=== PATIENT | male | born 1940 | race Caucasian/White ===

== ENCOUNTER → 2017-04-27 | Outpatient (CLI) | payer MEDICARE, OTHER ==
--- NOTE | 2017-04-27 12:42 | US ---
EXAMINATION TYPE: US duplex aorta DATE OF EXAM: 04/27/2017 COMPARISON: NONE CLINICAL HISTORY: Abd Aortic I71.4,I65.29Stenosis,J45.909Asthma. AAA EXAM MEASUREMENTS: Abdominal Aorta: Proximal: 3.1cm Transverse Mid: 3.2cm Transverse Distal: 3.1cm Transverse Bifurcation: not seen as patient was not NPO IMPRESSION: Mild aneurysmal dilatation identified.
--- NOTE | 2017-04-27 12:49 | US ---
EXAMINATION TYPE: US carotid duplex BILAT DATE OF EXAM: 04/27/2017 COMPARISON: NONE CLINICAL HISTORY: Abd Aortic I71.4,I65.29Stenosis,J45.909Asthma. Per patient history, calcification w as noted on spine X rays. EXAM MEASUREMENTS: RIGHT: Peak Systolic Velocity (PSV) cm/sec ----- Right CCA: 66.8 ----- Right ICA: 109.3 ----- Right ECA: 87.9 proximally ICA/CCA ratio: 1.6 RIGHT: End Diastole cm/sec ----- Right CCA: 14.8 ----- Right ICA: 26.8 ----- Right ECA: 14.7 LEFT: Peak Systolic Velocity (PSV) cm/sec ----- Left CCA: 78.0 ----- Left ICA: 78.0 ----- Left ECA: 68.0 proximally ICA/CCA ratio: 1.0 LEFT: End Diastole cm/sec ----- Left CCA: 13.9 ----- Left ICA: 12.8 ----- Left ECA: 0.0 VERTEBRALS (direction of flow): Right Vertebral: Antegrade Left Vertebral: Antegrade Rhythm: Normal IMPRESSION: Irregular calcification is noted at bilateral carotid bifurcation, but PSV is wnl bilate rally. Criteria for Assigning % of Stenosis / Diameter reduction (Estimation based on the indirect measurements of the internal carotid artery velocities (ICA PSV). 1. Normal (no stenosis)=ICA PSV < 125 cm/s: ratio < 2.0: ICA EDV<40 cm/s. 2. Less than 50% stenosis=ICA PSV < 125 cm/s: ratio < 2.0: ICA EDV<40 cm/s. 3. 50 to 69% stenosis=ICA PSV of 125 to 230 cm/s: ration 2.0 ? 4.0: ICA EDV 40-100 cm/s. 4. Greater than 70% stenosis to near occlusion= ICA PSV > 230 cm/s: ratio > 4.0: ICA EDV > 100 cm/s. 5. Near occlusion= ICA PSV velocities may be low or undetectable: variable ratio and ICA EDV. 6. Total occlusion=unable to detect flow.
== END | disposition home or self-care (01) ==
LOC: RADUSWWP 10:32
PROVIDERS: ATTEND Family Medicine
DX: I65.29 Occlusion and stenosis of unspecified carotid artery (principal); I71.4 Abdominal aortic aneurysm, without rupture
CPT/HCPCS: 93880; 93979; 94060; 94726; 94729

== ENCOUNTER → 2017-04-27 | Outpatient (CLI) | payer MEDICARE, OTHER | LOC: CPPFTMAIN 11:41 | PROVIDERS: ATTEND Family Medicine | DX: J45.909 Unspecified asthma, uncomplicated (principal) | CPT/HCPCS: 94060; 94726; 94729 ==

== ENCOUNTER 2017-06-14 11:38 | Inpatient (IN) | payer MEDICARE, OTHER ==
[2017-06-14] MEDS ORDERED: HYDROmorphone 0.5 MG/0.5 ML SYRINGE IVP STA (12:57)
[2017-06-14] MEDS ORDERED: PANTOPRAZOLE 40 MG/10 ML VIAL IVP STA (12:57)
[2017-06-14] MEDS ORDERED: SODIUM CHLORIDE 0.9% 1,000 ML IV STA (12:57)
[2017-06-14] MEDS ORDERED: RX INFO: IV CONTRAST WAS GIVEN 1 EACH MISC MISCELLANE PRN (12:57)
[2017-06-14] MEDS ORDERED: ONDANSETRON 4 MG/2 ML VIAL IVP STA (12:57)
[2017-06-14 14:20] LABS: INR 1.1 (<1.2); Partial Thromboplastin Time 26.9 sec (22.0-30.0)
[2017-06-14 14:24] LABS: ALT 101 U/L (21-72); AST 102 U/L (17-59); Albumin 3.4 g/dL (3.5-5.0); Alkaline Phosphatase 281 U/L (38-126); Amylase 43 U/L (30-110); Anion Gap 13 mmol/L; Basophils % (A) 0 %; Blood Urea Nitrogen 33 mg/dL (9-20); Calcium 9.2 mg/dL (8.4-10.2); Carbon Dioxide 22 mmol/L (22-30); Chloride 106 mmol/L (98-107); Eosinophils # (A) 0.1 k/uL (0-0.7); Eosinophils % (A) 3 %; Glucose 92 mg/dL (74-99); HCT 41.2 % (39.0-53.0); HGB 13.3 gm/dL (13.0-17.5); Lipase 224 U/L (23-300); Lymphocytes # (A) 0.9 k/uL (1.0-4.8); Lymphocytes % (A) 22 %; MCHC 32.3 g/dL (31.0-37.0); MCV 99.1 fL (80.0-100.0); Macrocytosis Slight; Mean Platelet Volume 8.4; Monocytes # (A) 0.3 k/uL (0-1.0); Monocytes % (A) 8 %; Neutrophils # (A) 2.7 k/uL (1.3-7.7); Neutrophils % (A) 65 %; Platelet Count 136 k/uL (150-450); Potassium 4.3 mmol/L (3.5-5.1); RBC 4.15 m/uL (4.30-5.90); RDW 15.9 % (11.5-15.5); Sodium 141 mmol/L (137-145); Total Protein 7.3 g/dL (6.3-8.2); WBC 4.2 k/uL (3.8-10.6)
[2017-06-14 14:52] LABS: Appearance,Urine Clear (Clear); Bilirubin,Urine Negative (Negative); Blood,Urine Negative (Negative); Color,Urine Yellow; Glucose,Urine (UA) Negative (Negative); Ketones,Urine Negative (Negative); Leukocyte Esterase,Urine Negative (Negative); Nitrite,Urine Negative (Negative); Protein,Urine Trace (Negative); Specific Gravity,Urine 1.017 (1.001-1.035); Urobilinogen,Urine <2.0 mg/dL (<2.0)
--- NOTE | 2017-06-14 15:13 | CT ---
EXAMINATION TYPE: CT abdomen pelvis w con DATE OF EXAM: 06/14/2017 COMPARISON: NONE HISTORY: Abdominal distention and vomiting x3 days. CT DLP: 1723 mGycm CONTRAST: CT scan of the abdomen and pelvis is performed without Oral Contrast and with IV Contrast, patient in jected with 80 mL of Visipaque 320. FINDINGS: LUNG BASES-: No visible nodule. No infiltrate. LIVER/GB: Nodular hepatic contour compatible with cirrhotic liver disease. Areas of abnormal decrease d attenuation within the dome of the liver right hepatic lobe as well as the medial segment left hepa tic lobe. Underlying lesions are not excluded. Consider ultrasound or MRI correlation. Gallbladder hy drops measuring 9.6 cm. Cholelithiasis with gallbladder sludge. Mild wall thickening suggested. Jyothi cystitis difficult to exclude. PANCREAS: No inflammation. No distinct mass. SPLEEN: Splenomegaly measuring 15 cm craniocaudal dimension. No lesion seen. ADRENALS: 1.5 cm nodule left adrenal gland. Right adrenal gland is unremarkable.. No thickening. KIDNEYS/BLADDER: No hydronephrosis. No nephrolithiasis. Renal cystic changes upper pole left kidne y. Small solid-appearing lesion lower pole right kidney measuring 1.1 cm. Urinary bladder grossly unr emarkable. BOWEL: Normal appendix. Normal bowel caliber. No inflammation. GENITAL ORGANS: Radiation therapy seeds within the prostate gland. LYMPH NODES: No greater than 1cm abdominal or pelvic lymph nodes are appreciated. AORTA: Abdominal aortic aneurysm measuring 3.1 cm AP dimension. Mild atheromatous changes. OSSEOUS STRUCTURES: No significant abnormality is seen. OTHER: Moderate ascites throughout the abdomen and pelvis. No evidence for abscess or pneumoperitoneu m.. IMPRESSION: 1. Hepatosplenomegaly with underlying cirrhotic liver disease. As noted there areas of heterogenous e nhancement within the liver and underlying masses are not excluded. Consider ultrasound and/or MR cor relation. 2. Gallbladder hydrops with cholelithiasis and gallbladder wall thickening. Acute cholecystitis diffi cult to exclude. 3. Moderate ascites. 4. Abdominal aortic aneurysm. 5. Small solid appearing renal lesion lower pole right kidney.
--- NOTE | 2017-06-14 15:31 | XR ---
EXAMINATION TYPE: XR chest 2V DATE OF EXAM: 06/14/2017 COMPARISON: NONE HISTORY: Shortness of breath TECHNIQUE: Frontal and lateral views of the chest are obtained. FINDINGS: Scattered senescent parenchymal changes noted. No evidence for infiltrate. No evidence for atelectasis. Heart size is stable. Mediastinal structures are stable and grossly unremarkable. No evidence for hilar prominence. Degenerative changes dorsal spine. IMPRESSION: 1. No evidence for acute pulmonary disease.
--- NOTE | 2017-06-14 15:57 | ED ---
Abdominal Pain HPI - General Chief Complaint: Abdominal Pain Stated Complaint: ABDOMINAL DISTENSION, DIARRHEA, URINE, WEIGHTLOSS Time Seen by Provider: 06/14/17 12:48 Source: patient Mode of arrival: ambulatory Limitations: no limitations - History of Present Illness Initial Comments: This 77-year-old white male presents with a complaint of abdominal pain, swelling, and distention. He states that this is been going on for approximately 2 months but seems to be getting severe recently. He states that he is unable to eat any more. He is able to tolerate some fluids. He states that his symptoms are worse with any food intake. He does not have an appetite. He feels as though he has lost some weight. He denies any fevers or chills. He has had occasional vomiting. He does have occasional diarrhea after eating. His symptoms are much worse with food intake. He relates a history of prostate cancer which was treated with surgery and radiation implants. He denies any metastases noted from his previous prostate cancer. He has recently moved to this area and has not been established with physicians. His prostate surgery was in 2012. No other complaints or modifying factors. - Related Data Home Medications Medication Instructions Recorded Confirmed ALPRAZolam [Xanax] 0.5 mg PO HS PRN 06/14/17 06/14/17 Acetaminophen [Tylenol Arthritis] 650 mg PO BID PRN 06/14/17 06/14/17 Aspirin EC [Ecotrin Low Dose] 81 mg PO DAILY 06/14/17 06/14/17 Cholecalciferol (Vitamin D3) 2,000 unit PO DAILY 06/14/17 06/14/17 [Vitamin D3] Cyclobenzaprine [Flexeril] 5 mg PO TID PRN 06/14/17 06/14/17 Felodipine [Felodipine ER] 10 mg PO DAILY 06/14/17 06/14/17 Gabapentin [Neurontin] 100 mg PO TID 06/14/17 06/14/17 HYDROcodone/APAP 5-325MG [[place] 1 tab PO Q6HR PRN 06/14/17 06/14/17 5-325] Hydrochlorothiazide 25 mg PO DAILY 06/14/17 06/14/17 Lactose-Reduced Food [Boost] 237 ml PO BID 06/14/17 06/14/17 Lisinopril [Zestril] 10 mg PO HS 06/14/17 06/14/17 Metoprolol Tartrate [Lopressor] 150 mg PO BID 06/14/17 06/14/17 Omeprazole 20 mg PO HS 06/14/17 06/14/17 Pravastatin Sodium [Pravachol] 20 mg PO HS 06/14/17 06/14/17 Tamsulosin [Flomax] 0.4 mg PO BID 06/14/17 06/14/17 metFORMIN HCL 1,000 mg PO BID 06/14/17 06/14/17 Allergies Allergy/AdvReac Type Severity Reaction Status Date / Time No Known Allergies Allergy Verified 06/14/17 12:50 Review of Systems ROS Statement: Those systems with pertinent positive or pertinent negative responses have been documented in the HPI. ROS Other: All systems not noted in ROS Statement are negative. Past Medical History Past Medical History: Cancer, Diabetes Mellitus, Hyperlipidemia, Hypertension, Prostate Disorder History of Any Multi-Drug Resistant Organisms: None Reported Additional Past Surgical History / Comment(s): oral surgery, Past Psychological History: No Psychological Hx Reported Smoking Status: Never smoker Past Alcohol Use History: None Reported Past Drug Use History: None Reported General Exam - General Exam Comments Initial Comments: GENERAL: The patient is well nourished and well hydrated. VITAL SIGNS: Heart rate, blood pressure, respiratory rate reviewed as recorded in nurse's notes. EYES: Pupils are round and reactive. Extraocular movements are intact. No conjunctival / lid redness or swelling. ENT: No external evidence of injury, swelling, or ecchymosis. Airway is patent. Throat is clear. NECK: Nontender. No swelling or evidence of injury. No subcutaneous emphysema. Trachea is midline. No thyroid mass. HEART: Regular rate and rhythm. Good peripheral pulses. LUNGS/CHEST: Breath sounds clear and equal bilaterally. No rales, rhonchi, or wheezes. No ecchymosis, subcutaneous emphysema, or tenderness. ABDOMEN: There is significant abdominal distention. There is diffuse tenderness noted. No palpable masses or organomegaly. No peritoneal signs. No abdominal wall swelling or ecchymosis. EXTREMITIES: No extremity tenderness. Normal muscle tone and function. No thoracolumbar tenderness. NEUROLOGIC: Sensation is grossly intact. Cranial nerve exam reveals face is symmetrical, tongue is midline, speech is clear. SKIN: No abrasions or ecchymosis is noted. No induration or masses noted. PSYCHIATRIC: Alert and oriented. Appropriate behavior and judgment. Limitations: no limitations Course Vital Signs 06/14/17 11:55 Temperature 97.9 F Pulse Rate 65 Respiratory 20 Rate Blood Pressure 126/63 O2 Sat by Pulse 97 Oximetry Medical Decision Making - Medical Decision Making The patient was seen and examined. All diagnostics were reviewed. He does receive IV pain medications and antiemetics with some moderate relief. The patient also had a EKG done which shows a normal sinus rhythm at a rate of 62. There is evidence of a left bundle branch block. There is no acute ST-T wave changes otherwise noted then some T-wave inversions in lead 1 and aVL. The MT intervals 152, QRS duration is 162, and the QTc interval is 505. The chest x- ray does not show any acute processes. The laboratory shows elevation of the liver function studies. The computed tomography scan of the abdomen and pelvis does show some gallbladder wall thickening as well as multiple gallstones consistent with a likely cholecystitis. The patient also has a cirrhotic liver with some ascites. There is also evidence of some hepatic lesions and a renal lesion. The possibility of prostatic cancer metastases is contemplated. It is felt as though symptoms have been progressive and her significant at this point in time and that he would require admission to the hospital for further treatment. He is agreeable. The case is discussed with Dr. Costello and he is agreeable to admission. - Lab Data Result diagrams: 06/14/17 14:00 06/14/17 14:00 Lab Results 06/14/17 06/14/17 06/14/17 Range/Units 14:00 14:00 14:00 WBC 4.2 (3.8-10.6) k/uL RBC 4.15 L (4.30-5.90) m/uL Hgb 13.3 (13.0-17.5) gm/dL Hct 41.2 (39.0-53.0) % MCV 99.1 (80.0-100.0) fL MCH 32.0 (25.0-35.0) pg MCHC 32.3 (31.0-37.0) g/dL RDW 15.9 H (11.5-15.5) % Plt Count 136 L (150-450) k/uL Neutrophils % 65 % Lymphocytes % 22 % Monocytes % 8 % Eosinophils % 3 % Basophils % 0 % Neutrophils # 2.7 (1.3-7.7) k/uL Lymphocytes # 0.9 L (1.0-4.8) k/uL Monocytes # 0.3 (0-1.0) k/uL Eosinophils # 0.1 (0-0.7) k/uL Basophils # 0.0 (0-0.2) k/uL Macrocytosis Slight PT 11.0 (9.0-12.0) sec INR 1.1 (<1.2) APTT 26.9 (22.0-30.0) sec Sodium 141 (137-145) mmol/L Potassium 4.3 (3.5-5.1) mmol/L Chloride 106 (98-107) mmol/L Carbon Dioxide 22 (22-30) mmol/L Anion Gap 13 mmol/L BUN 33 H (9-20) mg/dL Creatinine 1.22 (0.66-1.25) mg/dL Est GFR (MDRD) Af Amer >60 (>60 ml/min/1.73 sqM) Est GFR (MDRD) Non-Af 58 (>60 ml/min/1.73 sqM) Glucose 92 (74-99) mg/dL Calcium 9.2 (8.4-10.2) mg/dL Total Bilirubin 1.0 (0.2-1.3) mg/dL AST 102 H (17-59) U/L ALT 101 H (21-72) U/L Alkaline Phosphatase 281 H (38-126) U/L Total Protein 7.3 (6.3-8.2) g/dL Albumin 3.4 L (3.5-5.0) g/dL Amylase 43 (30-110) U/L Lipase 224 (23-300) U/L Urine Color Urine Appearance (Clear) Urine pH (5.0-8.0) Ur Specific Shiner (1.001-1.035) Urine Protein (Negative) Urine Glucose (UA) (Negative) Urine Ketones (Negative) Urine Blood (Negative) Urine Nitrite (Negative) Urine Bilirubin (Negative) Urine Urobilinogen (<2.0) mg/dL Ur Leukocyte Esterase (Negative) 06/14/17 Range/Units 14:47 WBC (3.8-10.6) k/uL RBC (4.30-5.90) m/uL Hgb (13.0-17.5) gm/dL Hct (39.0-53.0) % MCV (80.0-100.0) fL MCH (25.0-35.0) pg MCHC (31.0-37.0) g/dL RDW (11.5-15.5) % Plt Count (150-450) k/uL Neutrophils % % Lymphocytes % % Monocytes % % Eosinophils % % Basophils % % Neutrophils # (1.3-7.7) k/uL Lymphocytes # (1.0-4.8) k/uL Monocytes # (0-1.0) k/uL Eosinophils # (0-0.7) k/uL Basophils # (0-0.2) k/uL Macrocytosis PT (9.0-12.0) sec INR (<1.2) APTT (22.0-30.0) sec Sodium (137-145) mmol/L Potassium (3.5-5.1) mmol/L Chloride (98-107) mmol/L Carbon Dioxide (22-30) mmol/L Anion Gap mmol/L BUN (9-20) mg/dL Creatinine (0.66-1.25) mg/dL Est GFR (MDRD) Af Amer (>60 ml/min/1.73 sqM) Est GFR (MDRD) Non-Af (>60 ml/min/1.73 sqM) Glucose (74-99) mg/dL Calcium (8.4-10.2) mg/dL Total Bilirubin (0.2-1.3) mg/dL AST (17-59) U/L ALT (21-72) U/L Alkaline Phosphatase (38-126) U/L Total Protein (6.3-8.2) g/dL Albumin (3.5-5.0) g/dL Amylase (30-110) U/L Lipase (23-300) U/L Urine Color Yellow Urine Appearance Clear (Clear) Urine pH 5.0 (5.0-8.0) Ur Specific Shiner 1.017 (1.001-1.035) Urine Protein Trace H (Negative) Urine Glucose (UA) Negative (Negative) Urine Ketones Negative (Negative) Urine Blood Negative (Negative) Urine Nitrite Negative (Negative) Urine Bilirubin Negative (Negative) Urine Urobilinogen <2.0 (<2.0) mg/dL Ur Leukocyte Esterase Negative (Negative) Disposition Clinical Impression: Abdominal pain, Nausea and vomiting, Acute cholecystitis, Gallstones, Transaminitis, Hepatic lesion, Renal lesion, History of prostate cancer, Cirrhosis, Ascites Disposition: ADMITTED IP TO THIS HOSP Condition: Fair Referrals: Teressa Webb MD [Primary Care Provider] - 1-2 days Time of Disposition: 16:08 Decision Date: 06/14/17 Decision Time: 16:08
--- NOTE | 2017-06-14 18:21 | P.HPIM ---
History of Present Illness H&P Date: 06/14/17 Chief Complaint: abdominal bloating 77 y/o male that comes with symptoms of abdominal bloating for the past weeks. Girlfriend describe that he has had some abdominal symptoms for the past couple months. He has had several months of diarrhea. No fever, no chills. No hematemesis. Review of Systems Constitutional: Reports as per HPI, Reports weight loss, Denies chills, Denies fever, Denies sweats Ears, nose, mouth and throat: Denies bleeding gums, Denies nasal congestion, Denies nasal discharge Cardiovascular: Reports edema, Denies chest pain, Denies rapid heart beat, Denies syncope Respiratory: Denies wheezing Gastrointestinal: Reports bloating, Reports loss of appetite, Denies abdominal pain Musculoskeletal: Denies arm numbness/tingling, Denies gait dysfunction, Denies leg numbness/tingling Musculoskeletal: bilateral: foot swelling Integumentary: Denies depigmentation, Denies pruritus Neurological: Denies ataxia, Denies hearing difficulties, Denies sensory deficit Endocrine: Denies palpitations Hematologic/Lymphatic: Denies lymphadenopathy Allergic/Immunologic: Denies anaphylaxis, Denies angioedema Past Medical History Past Medical History: Cancer, Diabetes Mellitus, Hyperlipidemia, Hypertension, Prostate Disorder History of Any Multi-Drug Resistant Organisms: None Reported Additional Past Surgical History / Comment(s): oral surgery, Past Psychological History: No Psychological Hx Reported Smoking Status: Never smoker Past Alcohol Use History: None Reported Past Drug Use History: None Reported Medications and Allergies Home Medications Medication Instructions Recorded Confirmed Type ALPRAZolam [Xanax] 0.5 mg PO HS PRN 06/14/17 06/14/17 History Acetaminophen [Tylenol Arthritis] 650 mg PO BID PRN 06/14/17 06/14/17 History Aspirin EC [Ecotrin Low Dose] 81 mg PO DAILY 06/14/17 06/14/17 History Cholecalciferol (Vitamin D3) 2,000 unit PO DAILY 06/14/17 06/14/17 History [Vitamin D3] Cyclobenzaprine [Flexeril] 5 mg PO TID PRN 06/14/17 06/14/17 History Felodipine [Felodipine ER] 10 mg PO DAILY 06/14/17 06/14/17 History Gabapentin [Neurontin] 100 mg PO TID 06/14/17 06/14/17 History HYDROcodone/APAP 5-325MG [[place] 1 tab PO Q6HR PRN 06/14/17 06/14/17 History 5-325] Hydrochlorothiazide 25 mg PO DAILY 06/14/17 06/14/17 History Lactose-Reduced Food [Boost] 237 ml PO BID 06/14/17 06/14/17 History Lisinopril [Zestril] 10 mg PO HS 06/14/17 06/14/17 History Metoprolol Tartrate [Lopressor] 150 mg PO BID 06/14/17 06/14/17 History Omeprazole 20 mg PO HS 06/14/17 06/14/17 History Pravastatin Sodium [Pravachol] 20 mg PO HS 06/14/17 06/14/17 History Tamsulosin [Flomax] 0.4 mg PO BID 06/14/17 06/14/17 History metFORMIN HCL 1,000 mg PO BID 06/14/17 06/14/17 History Allergies Allergy/AdvReac Type Severity Reaction Status Date / Time No Known Allergies Allergy Verified 06/14/17 12:50 Physical Exam Vitals: Vital Signs Temp Pulse Pulse Resp BP BP Pulse Ox 06/14/17 17:41 96.2 F L 66 18 136/75 93 L 06/14/17 17:21 97.8 F 64 18 121/60 96 06/14/17 14:00 81 16 96 06/14/17 11:55 97.9 F 65 20 126/63 97 Intake and Output 06/14/17 06/14/17 06/14/17 06:59 14:59 22:59 Other: Weight 90.718 kg Patient Weight 06/15/17 06:59 Weight 90.718 kg - Constitutional General appearance: no acute distress - EENT Eyes: EOMI, PERRLA - Neck Neck: no lymphadenopathy, no rigidity - Respiratory Respiratory: bilateral: CTA, negative: rales, rhonchi, wheezing - Cardiovascular Rhythm: regular Heart sounds: normal: S1, S2 - Gastrointestinal General gastrointestinal: distended, normal bowel sounds, no tenderness - Integumentary Integumentary: normal - Neurologic Neurologic: CNII-XII intact - Musculoskeletal Musculoskeletal: gait normal, strength equal bilaterally - Psychiatric Psychiatric: A&O x's 3, appropriate affect Results CBC & Chem 7: 06/14/17 14:00 06/14/17 14:00 Labs: Abnormal Lab Results - Last 24 Hours (Table) 06/14/17 06/14/17 06/14/17 Range/Units 14:00 14:00 14:47 RBC 4.15 L (4.30-5.90) m/uL RDW 15.9 H (11.5-15.5) % Plt Count 136 L (150-450) k/uL Lymphocytes # 0.9 L (1.0-4.8) k/uL BUN 33 H (9-20) mg/dL AST 102 H (17-59) U/L ALT 101 H (21-72) U/L Alkaline Phosphatase 281 H (38-126) U/L Albumin 3.4 L (3.5-5.0) g/dL Urine Protein Trace H (Negative) Assessment and Plan (1) Cirrhosis Narrative/Plan: conult gastroenterology Current Visit: Yes Status: Acute Code(s): K74.60 - UNSPECIFIED CIRRHOSIS OF LIVER SNOMED Code(s): 27376239 (2) Transaminitis Narrative/Plan: check acute hepatitis panel will ultrasound to evaluate nodules vs masses on ct Current Visit: Yes Status: Acute Code(s): R74.0 - NONSPEC ELEV OF LEVELS OF TRANSAMNS & LACTIC ACID DEHYDRGNSE SNOMED Code(s): 758501200 (3) Diabetes mellitus Narrative/Plan: acck ac and hs will hold metformin sec to just being on clear liquids Current Visit: Yes Status: Acute Code(s): E11.9 - TYPE 2 DIABETES MELLITUS WITHOUT COMPLICATIONS SNOMED Code(s): 25265045 (4) Hypertension Narrative/Plan: controlled continue lisinopril and hydrochlorothiazide Current Visit: Yes Status: Acute Code(s): I10 - ESSENTIAL (PRIMARY) HYPERTENSION SNOMED Code(s): 56865703 (5) Hyperlipidemia Narrative/Plan: hold pravachol sec to elevaed ranaminases Current Visit: Yes Status: Acute Code(s): E78.5 - HYPERLIPIDEMIA, UNSPECIFIED SNOMED Code(s): 51756590 (6) Nausea and vomiting Narrative/Plan: clear liquids Current Visit: Yes Status: Acute Code(s): R11.2 - NAUSEA WITH VOMITING, UNSPECIFIED SNOMED Code(s): 13832828 (7) History of prostate cancer Narrative/Plan: s/p gold seed Current Visit: Yes Status: Acute Code(s): Z85.46 - PERSONAL HISTORY OF MALIGNANT NEOPLASM OF PROSTATE SNOMED Code(s): 722466145 Plan: discussed code status patient is full code
[2017-06-14] MEDS ORDERED: NALOXONE 0.4 MG/ML 1 ML VIAL IV PRN (18:25)
[2017-06-14] MEDS ORDERED: ONDANSETRON 4 MG/2 ML VIAL IVP PRN (18:25)
[2017-06-14 21:03] LABS: Glucose,Whole Blood 75 mg/dL (75-99)
[2017-06-15 07:24] LABS: Glucose,Whole Blood 72 mg/dL (75-99)
[2017-06-15 08:12] LABS: Anisocytosis Slight; Basophils % (A) 0 %; Eosinophils # (A) 0.1 k/uL (0-0.7); Eosinophils % (A) 2 %; HCT 38.8 % (39.0-53.0); HGB 12.1 gm/dL (13.0-17.5); Hypochromasia Slight; Lymphocytes # (A) 0.9 k/uL (1.0-4.8); Lymphocytes % (A) 26 %; MCH 30.8 pg (25.0-35.0); MCHC 31.1 g/dL (31.0-37.0); MCV 99.1 fL (80.0-100.0); Macrocytosis Slight; Mean Platelet Volume 9.3; Monocytes # (A) 0.3 k/uL (0-1.0); Monocytes % (A) 9 %; Neutrophils % (A) 61 %; Platelet Count 130 k/uL (150-450); RBC 3.91 m/uL (4.30-5.90); RDW 16.5 % (11.5-15.5); WBC 3.3 k/uL (3.8-10.6)
[2017-06-15 08:31] LABS: ALT 91 U/L (21-72); AST 85 U/L (17-59); Albumin 2.9 g/dL (3.5-5.0); Alkaline Phosphatase 227 U/L (38-126); Anion Gap 11 mmol/L; Blood Urea Nitrogen 34 mg/dL (9-20); Calcium 8.8 mg/dL (8.4-10.2); Carbon Dioxide 22 mmol/L (22-30); Chloride 107 mmol/L (98-107); Glucose 76 mg/dL (74-99); Magnesium 1.4 mg/dL (1.6-2.3); Potassium 4.2 mmol/L (3.5-5.1); Sodium 140 mmol/L (137-145); Total Protein 6.5 g/dL (6.3-8.2)
[2017-06-15 12:11] LABS: Hepatitis A Antibody IgM Non-Reactive (Non-Reactive); Hepatitis B Core IgM Non-Reactive (Non-Reactive)
--- NOTE | 2017-06-15 12:15 | P.CONS ---
History of Present Illness - Reason for Consult Consult date: 06/15/17 Cirrhosis Requesting physician: Alphonso Costello - History of Present Illness 77-year-old male admitted with abdominal bloatedness 2 months. Past medical history of prostate carcinoma, remote EtOH abuse quit in 1982, diabetes mellitus , hyperlipidemia, hypertension, obesity. Consult requested for cirrhosis. Ultrasound abdomen pending. CT abdomen and pelvis reported splenomegaly 15 cm craniocaudal dimension. Pancreas no distinct mass. Liver; nodular hepatic contour compatible with cirrhotic liver disease. No mentioning of ascites. Abnormal areas with decreased attenuation within the dome of the liver right hepatic lobe as well as the medial segment of the left hepatic lobe cannot exclude an underlying lesion. Gallbladder hydrops measuring 9.6 cm. Cholelithiasis with sludge. Mild wall thickening. Cholecystitis cannot be excluded. White count 3.3-4.2. Hemoglobin 12.1-13.3. Platelet 130-136. INR 1.1. BUN 34. Creatinine 1.2. Total bilirubin 1.0. AST 85-102. ALT 91-101. Alkaline phosphates 227-281. Lipase 224. No active ETOH. Maybe a few alcohol drinks a year. No history of hepatitis or IVDA. Patient was told in the past he had a "fatty liver". No history of EGD or colonoscopy. Occasional darker stool and hemorrhoidal bleeding but denies active bleeding such as gross hematemesis hematochezia or melena. Review of Systems Constitutional: Denies fever, chills, sweats, weight gain, or loss. HEENT: Negative for migraines, blurred vision or loss, earaches, drainage, tinnitus, oral mucosal lesions, dysphagia, or odynophagia. Cardiac: Hypertension. Hyperlipidemia. Negative for chest pain, arrhythmias, or palpitation. Respiratory: Negative for shortness of breath, hemoptysis, cough, or sputum production. Gastrointestinal: See HPI for pertinent findings. Genitourinary: History of prostate cancer. Musculoskeletal: Negative for muscle aches, swelling, arthritis, and arthralgias. Neurologic: Negative for stroke or TIA. Endocrine: Diabetes. Negative for thyroid problems. Skin: Negative for rash or itching. Psychiatric: Negative history for depression and anxiety Past Medical History Past Medical History: Cancer, Diabetes Mellitus, Hyperlipidemia, Hypertension, Prostate Disorder Additional Past Medical History / Comment(s): stress test 8 years ago,prostate cancer 2012, fatty liver, hemorrhoids, "leg/feet swelling","growth on rt eye" History of Any Multi-Drug Resistant Organisms: None Reported Past Surgical History: Prostate Surgery Additional Past Surgical History / Comment(s): oral surgery, Past Anesthesia/Blood Transfusion Reactions: No Reported Reaction Smoking Status: Former smoker - Past Family History Father Family Medical History: Pneumonia Additional Family Medical History / Comment(s): migraines. age 49 Mother Additional Family Medical History / Comment(s): polio as child. age 79 not ssure of cause but poos cancer. Medications and Allergies Home Medications Medication Instructions Recorded Confirmed Type ALPRAZolam [Xanax] 0.5 mg PO HS PRN 06/14/17 06/14/17 History Acetaminophen [Tylenol Arthritis] 650 mg PO BID PRN 06/14/17 06/14/17 History Cholecalciferol (Vitamin D3) 2,000 unit PO DAILY 06/14/17 06/14/17 History [Vitamin D3] Cyclobenzaprine [Flexeril] 5 mg PO TID PRN 06/14/17 06/14/17 History Felodipine [Felodipine ER] 10 mg PO DAILY 06/14/17 06/14/17 History Gabapentin [Neurontin] 100 mg PO TID 06/14/17 06/14/17 History HYDROcodone/APAP 5-325MG [[place] 1 tab PO Q6HR PRN 06/14/17 06/14/17 History 5-325] Lactose-Reduced Food [Boost] 237 ml PO BID 06/14/17 06/14/17 History Lisinopril [Zestril] 10 mg PO HS 06/14/17 06/14/17 History Metoprolol Tartrate [Lopressor] 150 mg PO BID 06/14/17 06/14/17 History Omeprazole 20 mg PO HS 06/14/17 06/14/17 History Pravastatin Sodium [Pravachol] 20 mg PO HS 06/14/17 06/14/17 History Tamsulosin [Flomax] 0.4 mg PO BID 06/14/17 06/14/17 History Furosemide [Lasix] 40 mg PO DAILY #30 tablet 06/16/17 Rx Spironolactone [Aldactone] 100 mg PO DAILY #30 tab 06/16/17 Rx metFORMIN HCL [Glucophage] 500 mg PO BID #60 tab 06/16/17 Rx Allergies Allergy/AdvReac Type Severity Reaction Status Date / Time No Known Allergies Allergy Verified 06/14/17 12:50 Physical Exam Vitals: Vital Signs Temp Pulse Pulse Resp BP BP Pulse Ox 06/15/17 07:00 97.3 F L 68 18 114/67 93 L 06/14/17 23:00 97.3 F L 66 16 109/53 91 L 06/14/17 17:41 96.2 F L 66 18 136/75 93 L 06/14/17 17:21 97.8 F 64 18 121/60 96 06/14/17 14:00 81 16 96 06/14/17 11:55 97.9 F 65 20 126/63 97 Intake and Output 06/14/17 06/15/17 06/15/17 22:59 06:59 14:59 Other: # Voids 1 1 1 # Bowel Movements 1 General appearance: The patient is alert, oriented, in no acute distress. Facial telangiectasia. HET: Head is normocephalic and atraumatic. Pupils are equal and reactive. Oropharynx is clear without lesions. Neck: Supple without lymphadenopathy. Trachea midline. Heart: S1 S2. Regular rate and rhythm. Lungs: No crackles or wheezes are heard. Abdomen: Soft, nontender, bloated with no appreciable ascites. bowel sounds present. No peritoneal signs. No palpable organomegaly or masses. Extremities: +1 edema bilaterally. Neurological: No focal deficits. Strength and sensation are grossly intact. Results CBC & Chem 7: 06/16/17 07:38 06/16/17 07:38 Labs: Abnormal Lab Results - Last 24 Hours (Table) 06/14/17 06/14/17 06/14/17 Range/Units 14:00 14:00 14:47 WBC (3.8-10.6) k/uL RBC 4.15 L (4.30-5.90) m/uL Hgb (13.0-17.5) gm/dL Hct (39.0-53.0) % RDW 15.9 H (11.5-15.5) % Plt Count 136 L (150-450) k/uL Lymphocytes # 0.9 L (1.0-4.8) k/uL BUN 33 H (9-20) mg/dL Creatinine (0.66-1.25) mg/dL POC Glucose (mg/dL) (75-99) mg/dL Magnesium (1.6-2.3) mg/dL AST 102 H (17-59) U/L ALT 101 H (21-72) U/L Alkaline Phosphatase 281 H (38-126) U/L Albumin 3.4 L (3.5-5.0) g/dL Urine Protein Trace H (Negative) 06/15/17 06/15/17 06/15/17 Range/Units 07:19 07:19 07:23 WBC 3.3 L (3.8-10.6) k/uL RBC 3.91 L (4.30-5.90) m/uL Hgb 12.1 L (13.0-17.5) gm/dL Hct 38.8 L (39.0-53.0) % RDW 16.5 H (11.5-15.5) % Plt Count 130 L (150-450) k/uL Lymphocytes # 0.9 L (1.0-4.8) k/uL BUN 34 H (9-20) mg/dL Creatinine 1.26 H (0.66-1.25) mg/dL POC Glucose (mg/dL) 72 L (75-99) mg/dL Magnesium 1.4 L (1.6-2.3) mg/dL AST 85 H (17-59) U/L ALT 91 H (21-72) U/L Alkaline Phosphatase 227 H (38-126) U/L Albumin 2.9 L (3.5-5.0) g/dL Urine Protein (Negative) CT scan - abdomen: report reviewed (Dr. Adams) US - abdomen: pending Assessment and Plan (1) Abdominal distention Narrative/Plan: 77 year male with a history of remote EtOH abuse more than 30 years ago presents with worsening abdominal distention 2 months with radiographic imaging suggestive of cirrhosis and a few areas of decreased attenuation within the liver that cannot exclude underlying lesions with elevated liver enzymes and normal bilirubin. Cirrhosis multifactorial in nature possible combination of remote alcohol liver disease combined with comorbidities of hypertension hyperlipidemia and diabetes contributing to overall cirrhotic appearance of liver. Underlying neoplastic process cannot be entirely excluded. Current Visit: Yes Status: Acute Code(s): R14.0 - ABDOMINAL DISTENSION ( GASEOUS) SNOMED Code(s): 10189979 (2) Elevated liver enzymes Current Visit: Yes Status: Acute Code(s): R74.8 - ABNORMAL LEVELS OF OTHER SERUM ENZYMES SNOMED Code(s): 164103147 (3) Cirrhosis Current Visit: Yes Status: Acute Code(s): K74.60 - UNSPECIFIED CIRRHOSIS OF LIVER SNOMED Code(s): 87830055 (4) Gallstones Current Visit: Yes Status: Acute Code(s): K80.20 - CALCULUS OF GALLBLADDER W /O CHOLECYSTITIS W/O OBSTRUCTION SNOMED Code(s): 016964244 (5) History of alcohol abuse Current Visit: Yes Status: Resolved Code(s): Z87.898 - PERSONAL HISTORY OF OTHER SPECIFIED CONDITIONS SNOMED Code(s): 668837196 Plan: 1 Will review US; possible diagnostic paracentesis. 2. MRI/MRCP liver rule out space occupying lesion and to further characterize findings mentioned on CT. 3. Hepatitis panel and additional serologic workup for chronic liver disease. Thank you for this kind referral and the opportunity to participate in the care of your patient. This consultation was discussed with Dr. Adams. The impression and plan of care have been directed as dictated.
--- NOTE | 2017-06-15 12:19 | US ---
EXAMINATION TYPE: US abdomen complete DATE OF EXAM: 06/15/2017 COMPARISON: CT 06/14/17 CLINICAL HISTORY: evaluate liver mass. Abnormal CT abdomen pelvis EXAM MEASUREMENTS: Liver Length: 18.7 cm Gallbladder Wall: 0.6 cm CBD: 0.2 cm Spleen: 14.5 cm Right Kidney: 12.5 x 5.7 x 5.3 cm Left Kidney: 12.2 x 4.9 x 4.7 cm Pancreas: Completely Obscured by bowel gas Liver: Partially Obscured by overlying bowel gas. Difficult to evaluate d/t overlying bowel gas. Het erogeneous texture, nodular contour noted. Discrete mass not identified with certainty. Findings are likely indicative for portal venous thrombosis. Gallbladder: enlarged with stones and sludge. Thickened GB wall Evidence for sonographic Barger's sign: Yes CBD: wnl Spleen: wnl Right Kidney: wnldifficult to evaluate d/t overlying bowel gas Left Kidney: wnl, difficult to evaluate d/t overlying bowel gas, especially lower pole. Upper IVC: wnl Abd Aorta: proximal section wnl, mid and distal portions not seen d/t large amounts of bowel gas. ascites noted. sub optimal exam overall due to large amounts of bowel gas. There is ascites. IMPRESSION: A discrete mass is not identified, exam is limited. Findings on CT and ultrasound suggest portal vein thrombosis, there may be underlying hepatoma. Liver MRI likely would be of benefit. Asci nirav, cirrhosis.
[2017-06-15 12:40] LABS: Glucose,Whole Blood 81 mg/dL (75-99)
--- NOTE | 2017-06-15 14:26 | P.PN ---
Subjective Progress Note Date: 06/15/17 Principal diagnosis: abdominal bloating today patient still complaining of fullness and bloating, no nausea, no vomiting , no loose stool in past 24 hrs. Objective - Vital Signs Vital signs: Vital Signs Temp 97.3 F L 06/15/17 07:00 Pulse 68 06/15/17 07:00 Resp 18 06/15/17 07:00 BP 114/67 06/15/17 07:00 Pulse Ox 93 L 06/15/17 07:00 Intake & Output 06/14/17 06/15/17 06/15/17 18:59 06:59 18:59 Weight 90.718 kg Other: # Voids 1 1 # Bowel Movements 1 - Constitutional General appearance: Present: no acute distress - EENT Eyes: Present: EOMI, PERRLA - Respiratory Respiratory: bilateral: CTA, negative: rales, rhonchi, wheezing - Cardiovascular Rhythm: regular Heart sounds: normal: S1, S2 - Peripheral edema foot Peripheral Edema: bilateral: 1+ leg Peripheral Edema: bilateral: 1+ - Gastrointestinal General gastrointestinal: Present: distended, normal bowel sounds - Psychiatric Psychiatric: Present: A&O x's 3 - Labs CBC & Chem 7: 06/15/17 07:19 06/15/17 07:19 Labs: Abnormal Lab Results - Last 24 Hours (Table) 06/14/17 06/14/17 06/14/17 Range/Units 14:00 14:00 14:47 WBC (3.8-10.6) k/uL RBC 4.15 L (4.30-5.90) m/uL Hgb (13.0-17.5) gm/dL Hct (39.0-53.0) % RDW 15.9 H (11.5-15.5) % Plt Count 136 L (150-450) k/uL Lymphocytes # 0.9 L (1.0-4.8) k/uL BUN 33 H (9-20) mg/dL Creatinine (0.66-1.25) mg/dL POC Glucose (mg/dL) (75-99) mg/dL Magnesium (1.6-2.3) mg/dL AST 102 H (17-59) U/L ALT 101 H (21-72) U/L Alkaline Phosphatase 281 H (38-126) U/L Albumin 3.4 L (3.5-5.0) g/dL Urine Protein Trace H (Negative) 06/15/17 06/15/17 06/15/17 Range/Units 07:19 07:19 07:23 WBC 3.3 L (3.8-10.6) k/uL RBC 3.91 L (4.30-5.90) m/uL Hgb 12.1 L (13.0-17.5) gm/dL Hct 38.8 L (39.0-53.0) % RDW 16.5 H (11.5-15.5) % Plt Count 130 L (150-450) k/uL Lymphocytes # 0.9 L (1.0-4.8) k/uL BUN 34 H (9-20) mg/dL Creatinine 1.26 H (0.66-1.25) mg/dL POC Glucose (mg/dL) 72 L (75-99) mg/dL Magnesium 1.4 L (1.6-2.3) mg/dL AST 85 H (17-59) U/L ALT 91 H (21-72) U/L Alkaline Phosphatase 227 H (38-126) U/L Albumin 2.9 L (3.5-5.0) g/dL Urine Protein (Negative) Assessment and Plan (1) Cirrhosis Narrative/Plan: GI following possible parascentesis Current Visit: Yes Status: Acute Code(s): K74.60 - UNSPECIFIED CIRRHOSIS OF LIVER SNOMED Code(s): 51040685 (2) Transaminitis Narrative/Plan: hepatitis profile ordered results pending Current Visit: Yes Status: Acute Code(s): R74.0 - NONSPEC ELEV OF LEVELS OF TRANSAMNS & LACTIC ACID DEHYDRGNSE SNOMED Code(s): 500430939 (3) Diabetes mellitus Narrative/Plan: acck ac and hs Current Visit: Yes Status: Acute Code(s): E11.9 - TYPE 2 DIABETES MELLITUS WITHOUT COMPLICATIONS SNOMED Code(s): 97215530 (4) Hypertension Narrative/Plan: controlled Current Visit: Yes Status: Acute Code(s): I10 - ESSENTIAL (PRIMARY) HYPERTENSION SNOMED Code(s): 40130815 (5) Hyperlipidemia Narrative/Plan: meds on hold sec to liver disease Current Visit: Yes Status: Acute Code(s): E78.5 - HYPERLIPIDEMIA, UNSPECIFIED SNOMED Code(s): 10019366 (6) Nausea and vomiting Narrative/Plan: no emesis since admission Current Visit: Yes Status: Acute Code(s): R11.2 - NAUSEA WITH VOMITING, UNSPECIFIED SNOMED Code(s): 23366680 (7) History of prostate cancer Current Visit: Yes Status: Acute Code(s): Z85.46 - PERSONAL HISTORY OF MALIGNANT NEOPLASM OF PROSTATE SNOMED Code(s): 720488711 Plan: Plan for [facility] to evalaute ?liver mases patien will probably need parascentesis for diagnostic purposes
--- NOTE | 2017-06-15 16:03 | US ---
EXAMINATION TYPE: US paracentesis abd w/image DATE OF EXAM: 06/15/2017 COMPARISON: NONE HISTORY: Ascites. PROCEDURE: Maximal barrier technique was utilized. The skin overlying a suitable pocket of fluid was localized with ultrasound and the overlying skin was prepped and draped. Ultrasound was utilized with sterile technique. Lidocaine was used for local anesthesia and a skin uli made with a scalpel. Catheter was advanced under direct ultrasound guidance into a suitable pocket of fluid and approximately 5.16 lite rs of yellow fluid were removed. Catheter was withdrawn and hemostasis achieved. There is no immedi ate complication; the patient is discharged in stable condition. Specimen sent for laboratory analysi s IMPRESSION: STATUS POST ULTRASOUND GUIDED PARACENTESIS FOR PALLIATION OF ASCITES. THIS PROCEDURE WA S PERFORMED BY THE UNDERSIGNED. Procedure also performed for diagnostic purposes.
[2017-06-15 17:16] LABS: Appearance,BF Clear; Color,BF Yellow
[2017-06-15 17:17] LABS: Nucleated Cells, Body Fluid 37 /uL; RBC, Body Fluid 332 /uL
[2017-06-15 17:19] LABS: Mononuclear WBC,Body Fluid 93 %; Polynuclear WBC,Body Fluid 7 %; Total Cells Counted,Body Fluid 100
[2017-06-15 17:46] LABS: Glucose,Whole Blood 77 mg/dL (75-99)
[2017-06-15] MEDS ORDERED: MORPHINE SULFATE 2 MG/ML SYRINGE IVP ONE (20:29)
[2017-06-15 20:54] LABS: Glucose,Whole Blood 71 mg/dL (75-99)
--- NOTE | 2017-06-15 21:00 | MR ---
EXAMINATION TYPE: MR MRCP DATE OF EXAM: 06/15/2017 COMPARISON: NONE HISTORY: Abd pain, elevated liver enzymes Standard multiplanar, multisequence MRI departmental protocol Multiplanar, multisequence images of the abdomen were acquired. Diffusion weighted imaging was perfor med. There are MRCP images. FINDINGS: There are low signal foci in the gallbladder consistent with multiple gallstones. I see no gallbladder wall thickening. There is ascites. Liver margin is somewhat irregular consistent with cir rhosis. There is a 7 cm poorly marginated area of mixed signal in the superior lateral right lobe of the liver. There are multiple bilateral renal cortical cysts that measure up to 1.5 cm. There is no h ydronephrosis. The bile ducts are not dilated. There is limited visualization on these images of the intrahepatic bile ducts. There is no evidence of a pancreatic mass. Pancreatic duct is not dilated. There is no evidence of a splenic mass. IMPRESSION: Ascites. Multiple gallstones. No dilated ducts. Limited visualization of the intrahepatic bile ducts. Irregular liver consistent with cirrhosis. Possible infiltrative mass in the posterior superior right lobe of the liver. Tumor cannot be excluded.
[2017-06-15 23:14] VITALS: RESP 16
[2017-06-16 06:22] VITALS: BP 151/67; PULSE 85; TEMP 97.4
[2017-06-16 07:18] LABS: Glucose,Whole Blood 69 mg/dL (75-99)
[2017-06-16 07:23] LABS: Glucose,Whole Blood 91 mg/dL (75-99)
[2017-06-16 07:52] LABS: HCT 40.6 % (39.0-53.0); HGB 12.9 gm/dL (13.0-17.5); MCH 32.2 pg (25.0-35.0); MCHC 31.8 g/dL (31.0-37.0); MCV 101.2 fL (80.0-100.0); Macrocytosis Slight; Mean Platelet Volume 8.7; Platelet Count 136 k/uL (150-450); RBC 4.01 m/uL (4.30-5.90); RDW 15.7 % (11.5-15.5); WBC 4.7 k/uL (3.8-10.6)
[2017-06-16 08:16] LABS: ALT 103 U/L (21-72); AST 99 U/L (17-59); Albumin 3.3 g/dL (3.5-5.0); Alkaline Phosphatase 258 U/L (38-126); Anion Gap 12 mmol/L; Blood Urea Nitrogen 22 mg/dL (9-20); Carbon Dioxide 26 mmol/L (22-30); Chloride 104 mmol/L (98-107); Glucose 112 mg/dL (74-99); Magnesium 1.4 mg/dL (1.6-2.3); Potassium 3.7 mmol/L (3.5-5.1); Sodium 142 mmol/L (137-145); Total Bilirubin 1.4 mg/dL (0.2-1.3); Total Protein 7.2 g/dL (6.3-8.2)
[2017-06-16] MEDS: MAGNESIUM SULFATE-D5W PMX 1 GM in DEXTROSE/WATER 1 100ML.BAG IVPB SCH ×2 (09:54→10:53)
--- NOTE | 2017-06-16 11:02 | P.DS ---
Providers Date of admission: 06/14/17 16:13 Expected date of discharge: 06/16/17 Attending physician: Alphonso Costello MD Consults: 06/14/17 18:27 Consult Physician Routine Consulting Provider: Darron Ribeiro Consult Reason/Comments: cirrhosis/elevated liver enzymes Do you want consulting provider notified?: Yes Primary care physician: Teressa Webb MD - Discharge Diagnosis(es) (1) Decompensated hepatic cirrhosis Current Visit: Yes Status: Acute (2) Transaminitis Current Visit: Yes Status: Acute (3) Hepatic lesion Current Visit: Yes Status: Acute (4) Hyperlipidemia Current Visit: Yes Status: Acute (5) Hypertension Current Visit: Yes Status: Acute (6) Nausea and vomiting Current Visit: Yes Status: Acute (7) History of prostate cancer Current Visit: Yes Status: Acute Hospital Course: Patient is a 77-year-old male with a past medical history of diabetes mellitus, dyslipidemia, hypertension, chronic pain, and prostate cancer who presented to the ER with complaints of abdominal bloating. In the ER he underwent an extensive evaluation. He was found have elevated liver enzymes. On CT scan he was found to have cirrhosis with heterogeneous enhancement within the liver and underlying mass not excluded, gallbladder hydrops, moderate ascites, and abdominal aortic aneurysm as well as a small solid-appearing renal lesion in the right kidney. He was admitted for further monitoring and evaluation. He was seen by GI who recommended paracentesis. He also underwent a liver ultrasound which was unrevealing other than showing cirrhosis but no underlying mass. He subsequently underwent an MRCP which showed irregular liver consistent with cirrhosis and possible infiltrative mass in the posterior superior right upper lobe of the liver. Tumor cannot be excluded. Ideally we would have performed a liver biopsy as an inpatient, however the patient had been on aspirin with his last dose on the . Therefore, he will have to have his liver biopsy completed after 7 days off of aspirin. This will be scheduled as an outpatient. His hepatitis A, B, and CK back negative. His of her enzymes remained stable throughout his hospitalization. He was feeling much improved after having 5.1 L drained off during his paracentesis. His kidney function remains stable. It was determined that he should be started on Aldactone and Lasix. He will be taken off hydrochlorothiazide. His blood sugars had been low normal and actually he had been slightly hypoglycemic during his hospitalization despite his metformin being held. Therefore his metformin will be decreased to 500 mg twice daily. I've told him that he should continue to check his blood sugars daily and make a log for Dr. Webb. If sugars continue to be controlled he could consider coming off the metformin. He also will meet with the dietitian prior to discharge for information on a low-sodium diet. He is aware of the importance of following up with GI as he will need a liver biopsy. He is aware to stay off his aspirin during this time. Patient seen and examined at bedside. Abdomen is feeling much better. Diarrhea has resolved. Tolerating a diet. No chest pain. No shortness of breath. Vital signs reviewed and stable. General: non toxic, no distress, appears at stated age Derm: warm, dry Head: atraumatic, normocephalic, symmetric Eyes: EOMI, no lid lag, anicteric sclera Mouth: no lip lesion, mucus membranes moist Cardiovascular: S1S2 reg, no murmur, positive posterior tibial pulse bilateral, Lungs: CTA bilateral, no rhonchi, no rales , no accessory muscle use Abdominal: soft, nontender to palpation, no guarding, no appreciable organomegaly Ext: no gross muscle atrophy, 2+ edema, no contractures Neuro: CN II-XI grossly intact, no focal neuro deficits Psych: Alert, oriented, appropriate affect A total of 45 minutes of time were spent preparing this complex discharge summary . Pertinent Studies: MRCP-irregular liver consistent with cirrhosis, possible infiltrative mass in the posterior superior right upper lobe of the liver, ascites, multiple gallstones Liver ultrasound-discrete mass identified, exam is limited, possible portal vein thrombosis CT of the abdomen and pelvis-hepatosplenomegaly with underlying cirrhotic liver , heterogeneous enhancement within the liver and underlying masses are not excluded, gallbladder hydrops with cholelithiasis and gallbladder wall thickening, moderate ascites, abdominal aortic aneurysm, small appearing renal lesion lower pole right kidney Procedures: Paracentesis with removal of 5.16 L of fluid Patient Condition at Discharge: Fair Plan - Discharge Summary Discharge Rx Participant: Yes New Discharge Prescriptions: New Furosemide [Lasix] 40 mg PO DAILY #30 tablet metFORMIN HCL [Glucophage] 500 mg PO BID #60 tab Spironolactone [Aldactone] 100 mg PO DAILY #30 tab Continue Cyclobenzaprine [Flexeril] 5 mg PO TID PRN PRN Reason: Muscle Spasm Acetaminophen [Tylenol Arthritis] 650 mg PO BID PRN PRN Reason: Pain ALPRAZolam [Xanax] 0.5 mg PO HS PRN PRN Reason: Insomnia Lisinopril [Zestril] 10 mg PO HS HYDROcodone/APAP 5-325MG [[place] 5-325] 1 tab PO Q6HR PRN PRN Reason: Pain Gabapentin [Neurontin] 100 mg PO TID Pravastatin Sodium [Pravachol] 20 mg PO HS Omeprazole 20 mg PO HS Felodipine [Felodipine ER] 10 mg PO DAILY Metoprolol Tartrate [Lopressor] 150 mg PO BID Cholecalciferol (Vitamin D3) [Vitamin D3] 2,000 unit PO DAILY Tamsulosin [Flomax] 0.4 mg PO BID Lactose-Reduced Food [Boost] 237 ml PO BID Discontinued Hydrochlorothiazide 25 mg PO DAILY Aspirin EC [Ecotrin Low Dose] 81 mg PO DAILY metFORMIN HCL 1,000 mg PO BID Discharge Medication List ALPRAZolam [Xanax] 0.5 mg PO HS PRN 06/14/17 [History] Acetaminophen [Tylenol Arthritis] 650 mg PO BID PRN 06/14/17 [History] Cholecalciferol (Vitamin D3) [Vitamin D3] 2,000 unit PO DAILY 06/14/17 [History] Cyclobenzaprine [Flexeril] 5 mg PO TID PRN 06/14/17 [History] Felodipine [Felodipine ER] 10 mg PO DAILY 06/14/17 [History] Gabapentin [Neurontin] 100 mg PO TID 06/14/17 [History] HYDROcodone/APAP 5-325MG [[place] 5-325] 1 tab PO Q6HR PRN 06/14/17 [History] Lactose-Reduced Food [Boost] 237 ml PO BID 06/14/17 [History] Lisinopril [Zestril] 10 mg PO HS 06/14/17 [History] Metoprolol Tartrate [Lopressor] 150 mg PO BID 06/14/17 [History] Omeprazole 20 mg PO HS 06/14/17 [History] Pravastatin Sodium [Pravachol] 20 mg PO HS 06/14/17 [History] Tamsulosin [Flomax] 0.4 mg PO BID 06/14/17 [History] Furosemide [Lasix] 40 mg PO DAILY #30 tablet 06/16/17 [Rx] Spironolactone [Aldactone] 100 mg PO DAILY #30 tab 06/16/17 [Rx] metFORMIN HCL [Glucophage] 500 mg PO BID #60 tab 06/16/17 [Rx] Follow up Appointment(s)/Referral(s): Teressa Webb MD [Primary Care Provider] - 1-2 days Ambulatory/Diagnostic Orders: Comprehensive Metabolic Panel [LAB.AMB] Location: Determined By Patient Magnesium [LAB.AMB] Location: Determined By Patient Patient Instructions/Handouts: Ascites (DC) Activity/Diet/Wound Care/Special Instructions: Low salt diet, cab consistent When you see Dr. Webb next week you will need lab work, please bring the order with you to your appointment. You should check your blood sugar once daily make a log and bring it to your appointment. Daily weight Discharge Disposition: HOME SELF-CARE
--- NOTE | 2017-06-16 11:39 | P.PN ---
Subjective Progress Note Date: 06/16/17 Principal diagnosis: Cirrhosis new-onset ascites 77-year-old male admitted with new onset of ascites with radiographic imaging consistent with cirrhosis. Status post therapeutic diagnostic paracentesis yesterday with 5.1 L removal. Patient feels better. MRCP demonstrated gallstones with irregular liver consistent with cirrhosis. Possible infiltrative mass in the posterior superior right lobe of the liver could not be excluded. Hepatitis panel negative. Total bilirubin 1.4. AST 99. ALT 103. Alkaline phosphatase 258. Additional serologic chemistries for evaluation of chronic liver disease are pending. Objective - Vital Signs Vital signs: Vital Signs Temp 97.4 F L 06/16/17 06:21 Pulse 85 06/16/17 06:21 Resp 16 06/16/17 06:21 BP 151/67 06/16/17 06:21 Pulse Ox 95 06/16/17 06:21 Intake & Output 06/15/17 06/16/17 06/16/17 18:59 06:59 18:59 Intake Total 480 Balance 480 Intake: Oral 480 Other: Voiding Method Toilet # Voids 3 2 # Bowel Movements 2 - Exam General appearance: The patient is alert, oriented, in no acute distress. Facial telangiectasia. HET: Head is normocephalic and atraumatic. Pupils are equal and reactive. Oropharynx is clear without lesions. Neck: Supple without lymphadenopathy. Trachea midline. Heart: S1 S2. Regular rate and rhythm. Lungs: No crackles or wheezes are heard. Abdomen: Soft, nontender, mildly bloated with bowel sounds. No peritoneal signs. No palpable organomegaly or masses. Extremities: +1 edema bilaterally Neurological: No focal deficits. Strength and sensation are grossly intact. - Labs CBC & Chem 7: 06/16/17 07:38 06/16/17 07:38 Labs: Abnormal Lab Results - Last 24 Hours (Table) 06/15/17 06/16/17 06/16/17 Range/Units 20:52 06:58 07:38 RBC 4.01 L (4.30-5.90) m/uL Hgb 12.9 L (13.0-17.5) gm/dL MCV 101.2 H (80.0-100.0) fL RDW 15.7 H (11.5-15.5) % Plt Count 136 L (150-450) k/uL BUN (9-20) mg/dL Glucose (74-99) mg/dL POC Glucose (mg/dL) 71 L 69 L (75-99) mg/dL Magnesium (1.6-2.3) mg/dL Total Bilirubin (0.2-1.3) mg/dL AST (17-59) U/L ALT (21-72) U/L Alkaline Phosphatase (38-126) U/L Albumin (3.5-5.0) g/dL 06/16/17 Range/Units 07:38 RBC (4.30-5.90) m/uL Hgb (13.0-17.5) gm/dL MCV (80.0-100.0) fL RDW (11.5-15.5) % Plt Count (150-450) k/uL BUN 22 H (9-20) mg/dL Glucose 112 H (74-99) mg/dL POC Glucose (mg/dL) (75-99) mg/dL Magnesium 1.4 L (1.6-2.3) mg/dL Total Bilirubin 1.4 H (0.2-1.3) mg/dL AST 99 H (17-59) U/L ALT 103 H (21-72) U/L Alkaline Phosphatase 258 H (38-126) U/L Albumin 3.3 L (3.5-5.0) g/dL Microbiology - Last 24 Hours (Table) 06/15/17 15:09 Body Fluid Culture - Preliminary Peritoneal Fluid 06/15/17 15:09 Anaerobic Culture - Preliminary Peritoneal Fluid Assessment and Plan (1) Abdominal distention Narrative/Plan: 77 year male with a history of remote EtOH abuse more than 30 years ago presents with worsening abdominal distention 2 months with radiographic imaging suggestive of cirrhosis ascites and a few areas of decreased attenuation within the liver that cannot exclude underlying lesions with elevated liver enzymes and normal bilirubin. Cirrhosis multifactorial in nature possible combination of remote alcohol liver disease combined with comorbidities of hypertension hyperlipidemia and diabetes contributing to overall cirrhotic appearance of liver. Underlying neoplastic process cannot be entirely excluded. Status post therapeutic diagnostic paracentesis serology cytology pending Status post MRCP evaluation infiltrative malignancy right hepatic lobe could not be excluded Current Visit: Yes Status: Acute Code(s): R14.0 - ABDOMINAL DISTENSION ( GASEOUS) SNOMED Code(s): 36730997 (2) Elevated liver enzymes Current Visit: Yes Status: Acute Code(s): R74.8 - ABNORMAL LEVELS OF OTHER SERUM ENZYMES SNOMED Code(s): 732366389 (3) Cirrhosis Current Visit: Yes Status: Acute Code(s): K74.60 - UNSPECIFIED CIRRHOSIS OF LIVER SNOMED Code(s): 30449449 (4) Gallstones Current Visit: Yes Status: Acute Code(s): K80.20 - CALCULUS OF GALLBLADDER W /O CHOLECYSTITIS W/O OBSTRUCTION SNOMED Code(s): 031503947 (5) History of alcohol abuse Current Visit: Yes Status: Resolved Code(s): Z87.898 - PERSONAL HISTORY OF OTHER SPECIFIED CONDITIONS SNOMED Code(s): 652734194 (6) Ascites Current Visit: Yes Status: Acute Code(s): R18.8 - OTHER ASCITES SNOMED Code(s): 734692735 Plan: 1. MRI report findings was discussed with patient. 2. Outpatient liver biopsy recommended secondary to recent aspirin therapy 2 days ago. No aspirin products for 7 days prior to liver biopsy per interventional radiology protocol. Liver biopsy scheduled for June 24. 3. Low-salt diet. 4. Aldactone 100 mg daily. Lasix 40 mg daily. 5. Return to office in 10-14 days for reevaluation and discussion of cytology and biopsy results. 6. Hold aspirin. Assessment and plan a care discussed with Dr. Adams
[2017-06-16 13:33] VITALS: BMI 31.3
[2017-06-16 15:48] LABS: Iron Saturation 20.73 (15.00-50.00)
[2017-06-16 17:28] LABS: Alpha Fetoprotein, Tumor Mkr 8134.6 ng/mL (0.0-7.9)
[2017-06-17 12:15] LABS: Ceruloplasmin 38.9 mg/dL (20.0-60.0)
[2017-06-18 10:56] LABS: Albumin 3.09 g/dL (3.80-4.90); Gamma Globulin 1.44 g/dL (0.70-1.50)
== END 2017-06-16 13:22 | disposition home or self-care (01) | DRG 433 ==
LOC: EC 11:38 → 4MS4W 16:13
PROVIDERS: ADMIT Internal Medicine; ATTEND Internal Medicine
PROC: 0W9G3ZX Drainage of Peritoneal Cavity, Percutaneous Approach, Diagnostic (ICD-10-PCS; principal; 2017-06-15)
DX: K74.60 Unspecified cirrhosis of liver (principal); K82.1 Hydrops of gallbladder; R18.8 Other ascites; E11.649 Type 2 diabetes mellitus with hypoglycemia without coma; K80.20 Calculus of gallbladder without cholecystitis without obstruction; K76.0 Fatty (change of) liver, not elsewhere classified; E78.5 Hyperlipidemia, unspecified; I10 Essential (primary) hypertension; K64.9 Unspecified hemorrhoids; I71.4 Abdominal aortic aneurysm, without rupture; N28.9 Disorder of kidney and ureter, unspecified; F10.11 Alcohol abuse, in remission; R74.0 Nonspecific elevation of levels of transaminase and lactic acid dehydrogenase [LDH]; Z79.84 Long term (current) use of oral hypoglycemic drugs; Z79.82 Long term (current) use of aspirin; Z79.899 Other long term (current) drug therapy; Z85.46 Personal history of malignant neoplasm of prostate; Z87.891 Personal history of nicotine dependence; G89.29 Other chronic pain
CPT/HCPCS: 36415; 49083; 71046; 74177; 74181; 76700; 80053; 80074; 81003; 82042; 82103; 82105; 82150; 82390; 82728; 82945; 83516; 83540; 83550; 83690; 83735; 84165; 85025; 85027; 85610; 85730; 86038; 87070; 87075; 87205; 88108; 88305; 89050; 93005; 96361; 96374; 96375; 99285

== ENCOUNTER 2017-06-23 09:46 | Day surgery (SDC) | payer MEDICARE, OTHER ==
[~2017-06-23 09:46] MED LIST: HYDROmorphone 0.5 MG/0.5 ML SYRINGE IVP PRN
[2017-06-23 10:52] LABS: Mean Platelet Volume 9.1; Platelet Count 146 k/uL (150-450)
[2017-06-23 10:53] VITALS: RESP 16; TEMP 97.6
[2017-06-23] MEDS ORDERED: ALPRAZolam 0.25 MG TAB PO STA (11:02)
[2017-06-23 11:18] LABS: INR 1.1 (<1.2); Partial Thromboplastin Time 25.6 sec (22.0-30.0); Prothrombin Time 10.4 sec (9.0-12.0)
--- NOTE | 2017-06-23 13:12 | US ---
EXAMINATION TYPE: US paracentesis abd w/image DATE OF EXAM: 06/23/2017 COMPARISON: NONE HISTORY: Ascites. PROCEDURE: Maximal barrier technique was utilized. The skin overlying a suitable pocket of fluid was localized with ultrasound and the overlying skin was prepped and draped. Ultrasound was utilized with sterile technique. Lidocaine was used for local anesthesia and a skin uli made with a scalpel. Catheter was advanced under direct ultrasound guidance into a suitable pocket of fluid and approximately 4.3 liter s of serous fluid were removed. Catheter was withdrawn and hemostasis achieved. There is no immedia te complication; the patient is discharged in stable condition. IMPRESSION: STATUS POST ULTRASOUND GUIDED PARACENTESIS FOR PALLIATION OF ASCITES and for preprocedur e lung biopsy. THIS PROCEDURE WAS PERFORMED BY THE UNDERSIGNED.
--- NOTE | 2017-06-23 16:05 | US ---
EXAMINATION TYPE: US biopsy liver DATE OF EXAM: 06/23/2017 HISTORY: Liver mass, abnormal alpha-fetoprotein, prior imaging exams. FINDINGS: Maximal barrier technique was utilized. The skin overlying a suitable path to the patient' s posterior right lobe of the liver was localized with ultrasound and the overlying skin prepped and draped. Ultrasound was utilized with sterile technique. Lidocaine was used for local anesthesia. A skin uli was made with a scalpel. An 18-gauge needle was advanced under direct ultrasound guidance and core specimen obtained of the abnormal posterior right lobe of the liver. Specimen submitted in formalin to Pathology. Following the procedure, hemostasis achieved and the patient is discharged i n stable condition without complication. IMPRESSION:STATUS POST ULTRASOUND GUIDED CORE BIOPSY OF right lobe of liver abnormality, PATHOLOGY IS PENDING. THIS PROCEDURE IS PERFORMED BY THE UNDERSIGNED.
[2017-06-23 16:29] VITALS: PULSE 64
[2017-06-23 16:30] VITALS: BP 108/68
== END 2017-06-23 16:30 | disposition home or self-care (01) ==
LOC: RADUSMAIN 09:46
PROVIDERS: ATTEND Internal Medicine Gastroenterology
DX: C22.0 Liver cell carcinoma (principal); R18.8 Other ascites
CPT/HCPCS: 82947; 85049; 85610; 85730; 88313; 88342; 88307; 88341; 36415; 47000; 49083; J1170; 76942

== ENCOUNTER 2017-08-11 07:52 | Day surgery (SDC) | payer MEDICARE, OTHER ==
[2017-08-11 08:53] VITALS: RESP 20; TEMP 97.4
[2017-08-11 08:55] LABS: Mean Platelet Volume 8.2; Platelet Count 172 k/uL (150-450)
[2017-08-11 09:19] LABS: Prothrombin Time 9.9 sec (9.0-12.0)
[2017-08-11 11:06] VITALS: BP 124/64; PULSE 57
--- NOTE | 2017-08-11 11:11 | US ---
Therapeutic paracentesis. DATE OF EXAM: 08/11/2017 CLINICAL HISTORY: Ascites The procedure was discussed with the patient. The risks, complications, benefits, and alternatives we re discussed and any questions were answered. Informed consent was obtained. The patient was placed s upine on the ultrasound table and prepped and draped in the usual sterile fashion. All elements of maximal barrier technique were utilized. Under ultrasound guidance, access into the right lower quadrant was obtained, via the paracentesis catheter system and direct ultrasound guidanc e. Approximately 8.4 liters of straw-colored fluid was removed. The patient was stable throughout the pr ocedure and remained stable upon discharge from Department of Radiology. IMPRESSION: Successful therapeutic paracentesis under ultrasound guidance.
== END 2017-08-11 11:20 | disposition home or self-care (01) ==
LOC: RADPROMAIN 07:52
PROVIDERS: ATTEND Internal Medicine Gastroenterology
DX: R18.8 Other ascites (principal)
CPT/HCPCS: 36415; 49083; 85049; 85610

== ENCOUNTER 2017-08-12 16:07 | Inpatient (IN) | payer MEDICARE, OTHER ==
[2017-08-12] MEDS ORDERED: SODIUM CHLORIDE 0.9% 500 ML IV STA (17:06)
[2017-08-12] MEDS ORDERED: ONDANSETRON 4 MG/2 ML VIAL IVP STA (17:06)
--- NOTE | 2017-08-12 17:10 | ED ---
General Adult HPI - General Chief complaint: Weakness Stated complaint: Fall/Nausea Source: patient, family, RN notes reviewed Mode of arrival: wheelchair Limitations: no limitations - History of Present Illness Initial comments: This is a 77-year-old male who presents to the emergency department with past medical history significant for liver cirrhosis and liver cancer. Patient comes into the emergency department with generalized weakness as well as significant nausea. Patient states he has not vomited. Patient denies diarrhea. Patient denies any recent fever chills or cough. Patient denies any difficulty breathing or chest pain. Patient denies palpitations. Patient denies lightheadedness dizziness or near syncopal episode. Patient denies any recent injury or fall. - Related Data Home Medications Medication Instructions Recorded Confirmed Cholecalciferol (Vitamin D3) 2,000 unit PO DAILY@89906/14/17 08/12/17 [Vitamin D3] Felodipine [Felodipine ER] 10 mg PO DAILY@0900 06/14/17 08/12/17 Gabapentin [Neurontin] 100 mg PO TID@0600,1400,2200 06/14/17 08/12/17 Omeprazole 20 mg PO HS@209906/14/17 08/12/17 Tamsulosin [Flomax] 0.4 mg PO BID@0900,209906/14/17 08/12/17 Magnesium Oxide [Mag-Ox] 400 mg PO QID@,,,07/05/17 08/12/17 Furosemide [Lasix] 40 mg PO BID@0900,1400 08/02/17 08/12/17 Midodrine [ProAmatine] 10 mg PO TID@0600,1400,2200 08/02/17 08/12/17 Propranolol HCl [Inderal Xl] 120 mg PO DAILY@00 08/02/17 08/12/17 Spironolactone [Aldactone] 12.5 mg PO DAILY@89908/02/17 08/12/17 Cyclobenzaprine [Flexeril] 5 mg PO Q8H PRN 08/12/17 08/12/17 HYDROcodone/APAP 5-325MG [Petal 1 tab PO Q6H PRN 08/12/17 08/12/17 5-325] Lactulose 20 gm PO QID@,,,08/12/17 08/12/17 Melatonin 5 mg PO HS PRN 08/12/17 08/12/17 Rifaximin [Xifaxan] 550 mg PO QID@09,13,17,21 08/12/17 08/12/17 Previous Rx's Medication Instructions Recorded MORPHINE ORAL SAVITA 2mg/mL [Morphine 6 mg PO Q6H PRN #100 ml 07/08/17 Oral Soln 2 MG/ML] Allergies Allergy/AdvReac Type Severity Reaction Status Date / Time No Known Allergies Allergy Verified 08/12/17 16:58 Review of Systems ROS Statement: Those systems with pertinent positive or pertinent negative responses have been documented in the HPI. ROS Other: All systems not noted in ROS Statement are negative. Past Medical History Past Medical History: Cancer, Diabetes Mellitus, Hyperlipidemia, Hypertension, Prostate Disorder, Renal Disease Additional Past Medical History / Comment(s): stress test 8 years ago,prostate cancer 2012, fatty liver, hemorrhoids, "leg/feet swelling","growth on rt eye" Liver Cancer 2018 History of Any Multi-Drug Resistant Organisms: None Reported Past Surgical History: Prostate Surgery Additional Past Surgical History / Comment(s): oral surgery, liver biopsy Past Anesthesia/Blood Transfusion Reactions: No Reported Reaction Past Psychological History: No Psychological Hx Reported Smoking Status: Former smoker Past Alcohol Use History: None Reported Past Drug Use History: None Reported - Past Family History Father Family Medical History: Pneumonia Additional Family Medical History / Comment(s): migraines. age 49 Mother Additional Family Medical History / Comment(s): polio as child. age 79 not sure of cause but poss cancer. General Exam - General Exam Comments Initial Comments: GENERAL: Patient is well-developed and well-nourished. Patient is nontoxic and well- hydrated and is in mild distress. Patient is alert and oriented but very tired and quickly falls asleep. ENT: Neck is soft and supple. No significant lymphadenopathy is noted. Oropharynx is clear. Moist mucous membranes. Neck has full range of motion without eliciting any pain. EYES: The sclera were anicteric and conjunctiva were pink and moist. Extraocular movements were intact and pupils were equal round and reactive to light. Eyelids were unremarkable. PULMONARY: Unlabored respirations. Good breath sounds bilaterally. No audible rales rhonchi or wheezing was noted. CARDIOVASCULAR: There is a regular rate and rhythm without any murmurs gallops or rubs. ABDOMEN: Soft and nontender with normal bowel sounds. No palpable organomegaly was noted. There is no palpable pulsatile mass. SKIN: Skin is clear with no lesions or rashes and otherwise unremarkable. NEUROLOGIC: Patient is alert and oriented x3. Cranial nerves II through XII are grossly intact. Motor and sensory are also intact. Normal speech, volume and content. Symmetrical smile. MUSCULOSKELETAL: Normal extremities with adequate strength and full range of motion. 1+ edema bilaterally LYMPHATICS: No significant lymphadenopathy is noted PSYCHIATRIC: Normal psychiatric evaluation. Limitations: no limitations Course Vital Signs 08/12/17 16:08 Temperature 96.7 F L Pulse Rate 55 L Respiratory 18 Rate Blood Pressure 97/51 O2 Sat by Pulse 96 Oximetry Medical Decision Making - Medical Decision Making EKG shows sinus rhythm with occasional PVC at 97 bpm OR interval 136 QRS is 84 QT interval 362 QTC is 459. Patient's EKG shows no ST segment elevation or depression or T wave abnormalities are noted. - Lab Data Result diagrams: 08/12/17 16:58 08/12/17 16:58 Lab Results 08/12/17 08/12/17 08/12/17 Range/Units 16:58 16:58 16:58 WBC 6.8 (3.8-10.6) k/uL RBC 3.97 L (4.30-5.90) m/uL Hgb 12.0 L (13.0-17.5) gm/dL Hct 38.3 L (39.0-53.0) % MCV 96.5 (80.0-100.0) fL MCH 30.3 (25.0-35.0) pg MCHC 31.4 (31.0-37.0) g/dL RDW 15.4 (11.5-15.5) % Plt Count 219 (150-450) k/uL Neutrophils % 72 % Lymphocytes % 16 % Monocytes % 9 % Eosinophils % 1 % Basophils % 0 % Neutrophils # 4.9 (1.3-7.7) k/uL Lymphocytes # 1.1 (1.0-4.8) k/uL Monocytes # 0.6 (0-1.0) k/uL Eosinophils # 0.1 (0-0.7) k/uL Basophils # 0.0 (0-0.2) k/uL PT (9.0-12.0) sec INR (<1.2) APTT (22.0-30.0) sec Sodium 136 L (137-145) mmol/L Potassium 5.9 H (3.5-5.1) mmol/L Chloride 107 (98-107) mmol/L Carbon Dioxide 15 L (22-30) mmol/L Anion Gap 14 mmol/L BUN 76 H (9-20) mg/dL Creatinine 3.70 H (0.66-1.25) mg/dL Est GFR (CKD-EPI)AfAm 17 (>60 ml/min/1.73 sqM) Est GFR (CKD-EPI)NonAf 15 (>60 ml/min/1.73 sqM) Glucose 148 H (74-99) mg/dL Plasma Lactic Acid Efren (0.7-2.0) mmol/L Calcium 8.8 (8.4-10.2) mg/dL Magnesium 3.0 H (1.6-2.3) mg/dL Total Bilirubin 0.9 (0.2-1.3) mg/dL AST 119 H (17-59) U/L ALT 109 H (21-72) U/L Alkaline Phosphatase 397 H (38-126) U/L Total Creatine Kinase 35 L (55-170) U/L CK-MB (CK-2) 1.3 (0.0-2.4) ng/mL CK-MB (CK-2) Rel Index 3.7 Troponin I <0.012 (0.000-0.034) ng/mL Total Protein 7.2 (6.3-8.2) g/dL Albumin 2.9 L (3.5-5.0) g/dL Urine Color Urine Appearance (Clear) Urine pH (5.0-8.0) Ur Specific Moody (1.001-1.035) Urine Protein (Negative) Urine Glucose (UA) (Negative) Urine Ketones (Negative) Urine Blood (Negative) Urine Nitrite (Negative) Urine Bilirubin (Negative) Urine Urobilinogen (<2.0) mg/dL Ur Leukocyte Esterase (Negative) Urine WBC (0-5) /hpf Urine WBC Clumps (None) /hpf Urine Bacteria (None) /hpf 03/15/18 03/15/18 03/15/18 Range/Units 16:58 16:58 16:58 WBC (3.8-10.6) k/uL RBC (4.30-5.90) m/uL Hgb (13.0-17.5) gm/dL Hct (39.0-53.0) % MCV (80.0-100.0) fL MCH (25.0-35.0) pg MCHC (31.0-37.0) g/dL RDW (11.5-15.5) % Plt Count (150-450) k/uL Neutrophils % % Lymphocytes % % Monocytes % % Eosinophils % % Basophils % % Neutrophils # (1.3-7.7) k/uL Lymphocytes # (1.0-4.8) k/uL Monocytes # (0-1.0) k/uL Eosinophils # (0-0.7) k/uL Basophils # (0-0.2) k/uL PT 9.9 (9.0-12.0) sec INR 1.0 (<1.2) APTT 24.8 (22.0-30.0) sec Sodium (137-145) mmol/L Potassium (3.5-5.1) mmol/L Chloride (98-107) mmol/L Carbon Dioxide (22-30) mmol/L Anion Gap mmol/L BUN (9-20) mg/dL Creatinine (0.66-1.25) mg/dL Est GFR (CKD-EPI)AfAm (>60 ml/min/1.73 sqM) Est GFR (CKD-EPI)NonAf (>60 ml/min/1.73 sqM) Glucose (74-99) mg/dL Plasma Lactic Acid Efren 2.6 H* (0.7-2.0) mmol/L Calcium (8.4-10.2) mg/dL Magnesium (1.6-2.3) mg/dL Total Bilirubin (0.2-1.3) mg/dL AST (17-59) U/L ALT (21-72) U/L Alkaline Phosphatase (38-126) U/L Total Creatine Kinase (55-170) U/L CK-MB (CK-2) (0.0-2.4) ng/mL CK-MB (CK-2) Rel Index Troponin I (0.000-0.034) ng/mL Total Protein (6.3-8.2) g/dL Albumin (3.5-5.0) g/dL Urine Color Yellow Urine Appearance Turbid (Clear) Urine pH 5.5 (5.0-8.0) Ur Specific Moody 1.015 (1.001-1.035) Urine Protein 1+ H (Negative) Urine Glucose (UA) Negative (Negative) Urine Ketones Negative (Negative) Urine Blood Small H (Negative) Urine Nitrite Negative (Negative) Urine Bilirubin Negative (Negative) Urine Urobilinogen <2.0 (<2.0) mg/dL Ur Leukocyte Esterase Large H (Negative) Urine WBC >182 H (0-5) /hpf Urine WBC Clumps Many H (None) /hpf Urine Bacteria Rare H (None) /hpf Critical Care Time Critical Care Time: Yes Total Critical Care Time: 35 Disposition Clinical Impression: Hyperkalemia, Acute renal failure, Urinary tract infection, Sepsis, Cirrhosis Disposition: ADMITTED IP TO THIS HOSP Referrals: Teressa Webb MD [Primary Care Provider] - 1-2 days Time of Disposition: 19:47
[2017-08-12 19:04] LABS: Basophils % (A) 0 %; Eosinophils # (A) 0.1 k/uL (0-0.7); Eosinophils % (A) 1 %; HCT 38.3 % (39.0-53.0); Lymphocytes # (A) 1.1 k/uL (1.0-4.8); Lymphocytes % (A) 16 %; MCH 30.3 pg (25.0-35.0); MCHC 31.4 g/dL (31.0-37.0); MCV 96.5 fL (80.0-100.0); Mean Platelet Volume 9.2; Monocytes # (A) 0.6 k/uL (0-1.0); Monocytes % (A) 9 %; Neutrophils # (A) 4.9 k/uL (1.3-7.7); Neutrophils % (A) 72 %; Platelet Count 219 k/uL (150-450); RBC 3.97 m/uL (4.30-5.90); RDW 15.4 % (11.5-15.5); WBC 6.8 k/uL (3.8-10.6)
[2017-08-12 19:08] LABS: Partial Thromboplastin Time 24.8 sec (22.0-30.0); Prothrombin Time 9.9 sec (9.0-12.0)
[2017-08-12 19:09] LABS: Albumin 2.9 g/dL (3.5-5.0); Calcium 8.8 mg/dL (8.4-10.2); Potassium 5.9 mmol/L (3.5-5.1); Total Bilirubin 0.9 mg/dL (0.2-1.3); Total Protein 7.2 g/dL (6.3-8.2)
[2017-08-12 19:22] LABS: Appearance,Urine Turbid (Clear); Bacteria,Urine Rare /hpf; Bilirubin,Urine Negative (Negative); Blood,Urine Small (Negative); Color,Urine Yellow; Creatine Kinase 35 U/L (55-170); Glucose,Urine (UA) Negative (Negative); Ketones,Urine Negative (Negative); Leukocyte Esterase,Urine Large (Negative); Nitrite,Urine Negative (Negative); PH, Urine 5.5 (5.0-8.0); Protein,Urine 1+ (Negative); Specific Gravity,Urine 1.015 (1.001-1.035); Urobilinogen,Urine <2.0 mg/dL (<2.0); WBC,Urine >182 /hpf (0-5)
[2017-08-12 19:34] LABS: Creatine Kinase MB 1.3 ng/mL (0.0-2.4); Troponin I <0.012 ng/mL (0.000-0.034)
[2017-08-12] MEDS ORDERED: cefTRIAXone IN SWFI 1,000 MG/10 ML SYRINGE IVP STA (19:43)
[2017-08-12] MEDS ORDERED: cefTRIAXone IN SWFI 2,000 MG/20 ML SYRINGE IVP STA (19:44)
[2017-08-12] MEDS ORDERED: SODIUM CHLORIDE 0.9% 1,000 ML IV ONE ×2 (19:45→19:47)
[2017-08-12] MEDS ORDERED: ACETAMINOPHEN TAB 325 MG TAB PO PRN (20:55)
[2017-08-12] MEDS ORDERED: NALOXONE 0.4 MG/ML 1 ML VIAL IV PRN (20:55)
[2017-08-12] MEDS ORDERED: RIFAXIMIN 550 MG TABLET PO SCH (21:00)
[2017-08-12 21:34] LABS: Glucose,Whole Blood 134 mg/dL (75-99)
--- NOTE | 2017-08-12 21:38 | CT ---
EXAMINATION TYPE: CT brain wo con DATE OF EXAM: 08/12/2017 COMPARISON: 07/05/2017 HISTORY: Confusion. CT DLP: 1138 mGycm Automated exposure control for dose reduction was used. FINDINGS: There is cerebral cortical atrophy. There is no mass effect nor midline shift. There is no sign of in tracranial hemorrhage. The calvarium is intact. IMPRESSION: CEREBRAL ATROPHY. NO ACUTE INTRACRANIAL ABNORMALITY. NO CHANGE.
--- NOTE | 2017-08-12 21:40 | P.HPIM ---
History of Present Illness H&P Date: 08/12/17 Chief Complaint: confusion and fall Patient is a 77-year-old male with a past medical history of recently diagnosed hepatocellular cancer with adjacent blood clot, end-stage liver disease, hypertension, dyslipidemia, and diabetes mellitus who presented to the emergency department for confusion and falls. Patient had just been released from [facility] 6 days ago after recovery from hepatic encephalopathy and new diagnosis of cancer. He has been following with Dr. Dumas of nephrology, Dr. Adams of GI, and Dr. Dhaliwal for oncology. Yesterday he underwent a paracentesis for removal of 8.4 L of fluid. Today he saw Dr. Dhaliwal to discuss medication options for his hepatocellular carcinoma, he has been seen at [facility] and is not a candidate for surgery or radiation secondary to an adjacent blood clot. In the emergency department today he underwent an extensive evaluation. His vital signs were within normal limits on arrival. He was discovered to have extensive laboratory abnormalities consistent with acute kidney injury with hyperkalemia, lactic acidosis, anemia, and possible urinary tract infection. He received 1 L of IV fluids and 2 g of Rocephin in the ER. Arrangements were made for admission. Patient seen and examined at bedside. He is acutely confused is alert to self only. He does not answer questions appropriately. All information is taken from his significant other Alice Cabezas. Initially on release from [facility] on Wednesday he had done good. On Wednesday and they had noticed that he was starting have decreased oral intake and was feeling weaker. On Wednesday he went and saw Dr. Webb and he missed 1 dose of lactulose. Yesterday he was seen here for a paracentesis with removal of 8.4 L of fluid. After that he had an acute increase in his confusion. He missed most of his medications yesterday including his lactulose and Xifaxan. He was not eating and has had decreased appetite for the last few days. This morning he was confused and went outside to get the mail and fell. He went and saw Dr. Dhaliwal this afternoon his confusion continued to increase. His significant other brought him here she felt he was going downhill quickly. He also missed a dose of lactulose today. He had also been complaining of some nausea but had not had any vomiting. He had been getting paracentesis weekly for 4 weeks between May and July, he then went approximately 4 weeks in between his last paracentesis. Yesterday was his fourth paracentesis in total. He had kidney function done on July 30 which showed a creatinine of 1.92. He has been following with Dr. Burnette in the office and was doing well. He has not had any recent changes in his medications other than his Lactulose was decreased to 3 times a day. He has not had any other complaints recently. Review of Systems Unable to obtain due to mental status, as able to obtain in HPI. ROS unobtainable: due to mental status Past Medical History Past Medical History: Cancer, Diabetes Mellitus, Hyperlipidemia, Hypertension, Prostate Disorder, Renal Disease Additional Past Medical History / Comment(s): Hepatocellular carcinoma, end- stage cirrhosis requiring recurrent paracentesis,prostate cancer 2012, hemorrhoids,"growth on rt eye", hx of stress test History of Any Multi-Drug Resistant Organisms: None Reported Past Surgical History: Prostate Surgery Additional Past Surgical History / Comment(s): oral surgery, liver biopsy Past Anesthesia/Blood Transfusion Reactions: No Reported Reaction Past Psychological History: No Psychological Hx Reported Smoking Status: Former smoker Past Alcohol Use History: None Reported Additional Past Alcohol Use History / Comment(s): History of abuse but stopped drinking in Past Drug Use History: None Reported Additional History: Lives with his significant other, has been using a walker when leaving the house - Past Family History Father Family Medical History: Pneumonia Additional Family Medical History / Comment(s): migraines. age 49 Mother Additional Family Medical History / Comment(s): polio as child. age 79 not sure of cause but poss cancer. Medications and Allergies Home Medications Medication Instructions Recorded Confirmed Type Cholecalciferol (Vitamin D3) 2,000 unit PO DAILY@0906/14/17 08/12/17 History [Vitamin D3] Felodipine [Felodipine ER] 10 mg PO DAILY@89906/14/17 08/12/17 History Gabapentin [Neurontin] 100 mg PO TID@0600,1400,2200 06/14/17 08/12/17 History Omeprazole 20 mg PO HS@209906/14/17 08/12/17 History Tamsulosin [Flomax] 0.4 mg PO BID@0900,209906/14/17 08/12/17 History Magnesium Oxide [Mag-Ox] 400 mg PO QID@,,,07/05/17 08/12/17 History MORPHINE ORAL SAVITA 2mg/mL [Morphine 6 mg PO Q6H PRN #100 ml 07/08/17 08/12/17 Rx Oral Soln 2 MG/ML] Furosemide [Lasix] 40 mg PO BID@0900,1400 08/02/17 08/12/17 History Midodrine [ProAmatine] 10 mg PO TID@0600,1400,2200 08/02/17 08/12/17 History Propranolol HCl [Inderal Xl] 120 mg PO DAILY@0900 08/02/17 08/12/17 History Spironolactone [Aldactone] 12.5 mg PO DAILY@0900 08/02/17 08/12/17 History Cyclobenzaprine [Flexeril] 5 mg PO Q8H PRN 08/12/17 08/12/17 History HYDROcodone/APAP 5-325MG [[place] 1 tab PO Q6H PRN 08/12/17 08/12/17 History 5-325] Lactulose 20 gm PO QID@,,,08/12/17 08/12/17 History Melatonin 5 mg PO HS PRN 08/12/17 08/12/17 History Rifaximin [Xifaxan] 550 mg PO QID@,,,08/12/17 08/12/17 History Allergies Allergy/AdvReac Type Severity Reaction Status Date / Time No Known Allergies Allergy Verified 08/12/17 16:58 Physical Exam Osteopathic Statement: *. No significant issues noted on an osteopathic structural exam other than those noted in the History and Physical/Consult. Vitals: Vital Signs Temp Pulse Resp BP Pulse Ox 08/12/17 20:00 56 L 16 101/55 93 L 08/12/17 19:00 52 L 106/57 96 08/12/17 18:00 53 L 98/53 95 08/12/17 17:00 53 L 96/54 95 08/12/17 16:08 96.7 F L 55 L 18 97/51 96 Intake and Output 08/12/17 08/12/17 08/12/17 06:59 14:59 22:59 Other: Weight 89.675 kg General: Ill appearing, mild distress, appears at stated age, normal weight Derm:, Multiple areas of ecchymoses, skin tear left elbow, pinpoint laceration right lower quadrant secondary to paracentesis , warm, dry Head: atraumatic, normocephalic, symmetric Eyes: EOMI, no lid lag, anicteric sclera, pupils equal round reactive to light ENT: Nose and ears atraumatic, no thrush Neck: No thyromegaly, no cervical lymphadenopathy, trachea midline, supple Mouth: no lip lesion, [mucus membranes dry Cardiovascular: S1S2 reg, no murmur, positive posterior tibial pulse bilateral, no edema, capillary refill less than 2 seconds Lungs: Decreased breath sounds bilateral, no rhonchi, no rales , no accessory muscle use Abdominal: soft, nontender to palpation, no guarding, no appreciable organomegaly, normal bowel sounds Ext: no gross muscle atrophy, muscle strength 4 out of 5 in all 4 extremities grossly, no contractures, Neuro: CN II-XI grossly intact, light touch intact all 4 extremities, finger to nose poor, no asterixis Psych: Alert, oriented to self only, appropriate affect Results CBC & Chem 7: 08/12/17 16:58 08/12/17 16:58 Labs: Abnormal Lab Results - Last 24 Hours (Table) 08/12/17 08/12/17 08/12/17 Range/Units 16:58 16:58 16:58 RBC 3.97 L (4.30-5.90) m/uL Hgb 12.0 L (13.0-17.5) gm/dL Hct 38.3 L (39.0-53.0) % Sodium 136 L (137-145) mmol/L Potassium 5.9 H (3.5-5.1) mmol/L Carbon Dioxide 15 L (22-30) mmol/L BUN 76 H (9-20) mg/dL Creatinine 3.70 H (0.66-1.25) mg/dL Glucose 148 H (74-99) mg/dL Plasma Lactic Acid Efren (0.7-2.0) mmol/L Magnesium 3.0 H (1.6-2.3) mg/dL AST 119 H (17-59) U/L ALT 109 H (21-72) U/L Alkaline Phosphatase 397 H (38-126) U/L Ammonia (<30) umol/L Total Creatine Kinase 35 L (55-170) U/L Albumin 2.9 L (3.5-5.0) g/dL Urine Protein (Negative) Urine Blood (Negative) Ur Leukocyte Esterase (Negative) Urine WBC (0-5) /hpf Urine WBC Clumps (None) /hpf Urine Bacteria (None) /hpf 08/12/17 08/12/17 08/12/17 Range/Units 16:58 16:58 20:18 RBC (4.30-5.90) m/uL Hgb (13.0-17.5) gm/dL Hct (39.0-53.0) % Sodium (137-145) mmol/L Potassium (3.5-5.1) mmol/L Carbon Dioxide (22-30) mmol/L BUN (9-20) mg/dL Creatinine (0.66-1.25) mg/dL Glucose (74-99) mg/dL Plasma Lactic Acid Efren 2.6 H* (0.7-2.0) mmol/L Magnesium (1.6-2.3) mg/dL AST (17-59) U/L ALT (21-72) U/L Alkaline Phosphatase (38-126) U/L Ammonia 357 H (<30) umol/L Total Creatine Kinase (55-170) U/L Albumin (3.5-5.0) g/dL Urine Protein 1+ H (Negative) Urine Blood Small H (Negative) Ur Leukocyte Esterase Large H (Negative) Urine WBC >182 H (0-5) /hpf Urine WBC Clumps Many H (None) /hpf Urine Bacteria Rare H (None) /hpf Thrombosis Risk Factor Assmnt - DVT/VTE Prophylaxis DVT/VTE Prophylaxis: Contraindicated - See note (Await CT brain, if normal then will start heparin) Assessment and Plan Assessment: Hepatic encephalopathy -Stat head CT -Resume lactulose and Xifaxan -Neuro checks -Fall precautions -Consult GI - Hold morphine, flexaril, gabapentin, norco DINESH on CKD 3 with hyperkalemia - Concerns for hepatorenal syndrome with recent large volume paracentesis, will try volume expansion with 50 grams of albumin if not effective will likely need increase midodrine and octreotide - Maintain adequate BP - received 1.5L of IVF in the ED - hold lasix, aldacotne - continue midodrine - Consult nephrology - [place] [id number] Lactic acidosis - suspect secondary to liver failure not sepsis UTI - rocephin - await cultures Cirrhosis - chronic transaminits at baseline - hold lasix, aldactone due to DINESH - hold propranolol due to decreased Bp - Consult GI - MELD Score Hepatocellular carcinoma - Consult Dr. Dhaliwal - Continue outpatient follow-up Anemia - chronic, at baseline - follow intermittent CBC DM 2 - HgB A1C 5.4 in Jul - follow BG as had issues with hypoglycemia las admission Chronic: HTN HLD Chronic pain Surrogate decision-maker: Significant other Alice Cabezas CODE STATUS:Full, will be looking into advanced directives soon but patient currently confused DVT prophylaxis: heparin if head CT negtive Discussed with: Patient, Family, nursing, ED physician Anticipated discharge: 3-[address]: home with home health (No longer want rehab) A total of 90 minutes was spent on the care of this complex patient more than 50 % of the time was spent in counseling and care coordination.
[2017-08-12] MEDS: ALBUMIN HUMAN 25% 50 ML in EMPTY BAG 1 BAG IVPB SCH ×4 (22:55→23:41)
[2017-08-12] MEDS: TAMSULOSIN 0.4 MG CAP.ER.24H PO SCH (23:05)
[2017-08-12] MEDS: MIDODRINE 5 MG TAB PO SCH (23:05)
[2017-08-12] MEDS: RIFAXIMIN 550 MG TABLET PO SCH (23:05)
[2017-08-12] MEDS: LACTULOSE 20 GM/30 ML CUP PO SCH (23:06)
[2017-08-13 00:15] LABS: Calcium 8.2 mg/dL (8.4-10.2); Potassium 5.2 mmol/L (3.5-5.1)
[2017-08-13] MEDS: SODIUM CHLORIDE 0.9% 1,000 ML IV SCH ×3 (03:40→15:00)
[2017-08-13 06:02] LABS: HCT 32.5 % (39.0-53.0); HGB 10.8 gm/dL (13.0-17.5); MCH 31.6 pg (25.0-35.0); MCHC 33.2 g/dL (31.0-37.0); MCV 95.3 fL (80.0-100.0); Mean Platelet Volume 8.3; Platelet Count 152 k/uL (150-450); RBC 3.41 m/uL (4.30-5.90); RDW 15.3 % (11.5-15.5); WBC 4.2 k/uL (3.8-10.6)
[2017-08-13 06:10] LABS: Prothrombin Time 10.2 sec (9.0-12.0)
[2017-08-13 06:17] LABS: Albumin 2.7 g/dL (3.5-5.0); Calcium 8.2 mg/dL (8.4-10.2); Potassium 4.6 mmol/L (3.5-5.1); Total Bilirubin 0.7 mg/dL (0.2-1.3); Total Protein 6.2 g/dL (6.3-8.2)
[2017-08-13] MEDS: PANTOPRAZOLE 40 MG TABLET PO SCH (06:40)
[2017-08-13] MEDS: MIDODRINE 5 MG TAB PO SCH ×3 (06:40→20:51)
[2017-08-13 08:18] LABS: Glucose,Whole Blood 85 mg/dL (75-99)
[2017-08-13] MEDS ORDERED: amLODIPine 10 MG TAB PO SCH (09:00)
[2017-08-13] MEDS: TAMSULOSIN 0.4 MG CAP.ER.24H PO SCH ×2 (09:11→20:51)
[2017-08-13] MEDS: RIFAXIMIN 550 MG TABLET PO SCH ×2 (09:11→20:51)
[2017-08-13] MEDS: LACTULOSE 20 GM/30 ML CUP PO SCH ×4 (09:11→20:51)
[2017-08-13] MEDS: cefTRIAXone IN SWFI 1,000 MG/10 ML SYRINGE IVP SCH (09:15)
--- NOTE | 2017-08-13 09:25 | P.CONS ---
History of Present Illness - Reason for Consult Consult date: 08/13/17 Hepatic encephalopathy Requesting physician: Romina Noel - History of Present Illness 77-year-old male well-known to the GI service with a history of chronic kidney disease, diabetes, underlying alcohol liver cirrhosis portal hypertension ascites with multiple paracentesis with recent diagnosis of hepatocellular carcinoma. Patient admitted with confusion elevated ammonia level 357 as well as BUN and creatinine. BUN 76. Creatinine 3.5. Patient was given Xifaxan lactulose current ammonia level 94. Patient underwent paracentesis 2 days ago with 8 L removed. Denies hematemesis hematochezia melena. White count 4.2. Hemoglobin 10.8. INR 1.0. Total bilirubin 0.7. AST 90. ALT 93. Alkaline phosphates to 94. Current BUN 74. Creatinine 3.3. CT brain no acute abnormality. Review of Systems Constitutional: Denies fever, chills, sweats, weight gain, or loss. HEENT: Negative for migraines, blurred vision or loss, earaches, drainage, tinnitus, oral mucosal lesions, dysphagia, or odynophagia. Cardiac: Hypertension. Hyperlipidemia. Negative for chest pain, arrhythmias, or palpitation. Respiratory: Negative for shortness of breath, hemoptysis, cough, or sputum production. Gastrointestinal: See HPI for pertinent findings. Genitourinary: History of prostate cancer. Musculoskeletal: Negative for muscle aches, swelling, arthritis, and arthralgias. Neurologic: Negative for stroke or TIA. Endocrine: Diabetes. Negative for thyroid problems. Skin: Negative for rash or itching. Psychiatric: Negative history for depression and anxiety Past Medical History Past Medical History: Cancer, Diabetes Mellitus, Hyperlipidemia, Hypertension, Prostate Disorder, Renal Disease Additional Past Medical History / Comment(s): Hepatocellular carcinoma w/blood clot lt of tumor-per , end-stage cirrhosis/ascities requiring recurrent paracentesis,prostate cancer 2012, hemorrhoids,"growth on rt eye", hx of stress test , uti, falls. pt's stated that pt was dx w/ dm-2 10 years ago and has been on oral agents but since about afater first week at [facility] they took him off his dm meds and were'nt checking bs. History of Any Multi-Drug Resistant Organisms: None Reported Past Surgical History: Prostate Surgery Additional Past Surgical History / Comment(s): oral surgery, liver biopsy, recurrant paracentesis Past Anesthesia/Blood Transfusion Reactions: No Reported Reaction Smoking Status: Former smoker - Past Family History Father Family Medical History: Pneumonia Additional Family Medical History / Comment(s): migraines. age 49 Mother Additional Family Medical History / Comment(s): polio as child. age 79 not sure of cause but poss cancer. Medications and Allergies Home Medications Medication Instructions Recorded Confirmed Type Cholecalciferol (Vitamin D3) 2,000 unit PO DAILY@89906/14/17 08/12/17 History [Vitamin D3] Felodipine [Felodipine ER] 10 mg PO DAILY@89906/14/17 08/12/17 History Gabapentin [Neurontin] 100 mg PO TID@0600,1400,2200 06/14/17 08/12/17 History Omeprazole 20 mg PO HS@209906/14/17 08/12/17 History Tamsulosin [Flomax] 0.4 mg PO BID@0900,209906/14/17 08/12/17 History Magnesium Oxide [Mag-Ox] 400 mg PO QID@,,,07/05/17 08/12/17 History MORPHINE ORAL SAVITA 2mg/mL [Morphine 6 mg PO Q6H PRN #100 ml 07/08/17 08/12/17 Rx Oral Soln 2 MG/ML] Furosemide [Lasix] 40 mg PO BID@0900,1400 08/02/17 08/12/17 History Midodrine [ProAmatine] 10 mg PO TID@0600,1400,2200 08/02/17 08/12/17 History Propranolol HCl [Inderal Xl] 120 mg PO DAILY@00 08/02/17 08/12/17 History Spironolactone [Aldactone] 12.5 mg PO DAILY@89908/02/17 08/12/17 History Cyclobenzaprine [Flexeril] 5 mg PO Q8H PRN 08/12/17 08/12/17 History HYDROcodone/APAP 5-325MG [[place] 1 tab PO Q6H PRN 08/12/17 08/12/17 History 5-325] Lactulose 20 gm PO QID@,,,08/12/17 08/12/17 History Melatonin 5 mg PO HS PRN 08/12/17 08/12/17 History Rifaximin [Xifaxan] 550 mg PO QID@09,13,17,21 08/12/17 08/12/17 History Allergies Allergy/AdvReac Type Severity Reaction Status Date / Time No Known Allergies Allergy Verified 08/12/17 16:58 Physical Exam Vitals: Vital Signs Temp Pulse Pulse Resp BP BP BP 08/13/17 09:00 97.6 F 61 16 106/59 08/13/17 06:38 71 103/64 08/13/17 04:00 97.6 F 71 18 94/59 08/12/17 23:47 18 08/12/17 22:50 97.2 F L 58 L 18 100/55 08/12/17 20:55 97.7 F 58 L 18 96/56 08/12/17 20:00 56 L 16 101/55 08/12/17 19:00 52 L 106/57 08/12/17 18:00 53 L 98/53 08/12/17 17:00 53 L 96/54 08/12/17 16:08 96.7 F L 55 L 18 97/51 Pulse Ox 08/13/17 09:00 97 08/13/17 06:38 08/13/17 04:00 97 08/12/17 23:47 08/12/17 22:50 96 08/12/17 20:55 99 08/12/17 20:00 93 L 08/12/17 19:00 96 08/12/17 18:00 95 08/12/17 17:00 95 08/12/17 16:08 96 Intake and Output 08/12/17 08/13/17 08/13/17 22:59 06:59 14:59 Intake Total 2900 Balance 2900 Intake: Intake, IV Titration 2900 Amount Albumin Human 25% 50 ml 200 In Empty Bag 1 bag @ 200 mls/hr IVPB Q15M RAVINDRA Rx#: [id number] Sodium Chloride 0.9% 1, 700 000 ml @ 50 mls/hr IV . Q20H RAVINDRA Rx#:[id number] Sodium Chloride 0.9% 1, 1000 000 ml @ 999 mls/hr IV . Q1H1M ONE Rx#:[id number] Sodium Chloride 0.9% 500 1000 ml @ 999 mls/hr IV .Q31M STA Rx#:[id number] Other: Weight 89.675 kg 93.5 kg General appearance: The patient is alert, oriented, in no acute distress. Slightly drowsy but appropriate. HET: Head is normocephalic and atraumatic. Pupils are equal and reactive. Oropharynx is clear without lesions. Neck: Supple without lymphadenopathy. Trachea midline. Heart: S1 S2. Regular rate and rhythm. Lungs: No crackles or wheezes are heard. Abdomen: Soft, nontender, mildly distended with mild ascites with bowel sounds. No peritoneal signs. No palpable organomegaly or masses. Extremities: Normal skin color and turgor. No cyanosis, rash, ulceration, clubbing, or edema. Radial and pedal pulses are 2/4 bilaterally. Neurological: No focal deficits. Strength and sensation are grossly intact. Results CBC & Chem 7: 08/13/17 05:39 08/13/17 05:39 Labs: Abnormal Lab Results - Last 24 Hours (Table) 08/12/17 08/12/17 08/12/17 Range/Units 16:58 16:58 16:58 RBC 3.97 L (4.30-5.90) m/uL Hgb 12.0 L (13.0-17.5) gm/dL Hct 38.3 L (39.0-53.0) % Sodium 136 L (137-145) mmol/L Potassium 5.9 H (3.5-5.1) mmol/L Chloride (98-107) mmol/L Carbon Dioxide 15 L (22-30) mmol/L BUN 76 H (9-20) mg/dL Creatinine 3.70 H (0.66-1.25) mg/dL Glucose 148 H (74-99) mg/dL POC Glucose (mg/dL) (75-99) mg/dL Plasma Lactic Acid Efren (0.7-2.0) mmol/L Calcium (8.4-10.2) mg/dL Magnesium 3.0 H (1.6-2.3) mg/dL AST 119 H (17-59) U/L ALT 109 H (21-72) U/L Alkaline Phosphatase 397 H (38-126) U/L Ammonia (<30) umol/L Total Creatine Kinase 35 L (55-170) U/L Total Protein (6.3-8.2) g/dL Albumin 2.9 L (3.5-5.0) g/dL Urine Protein (Negative) Urine Blood (Negative) Ur Leukocyte Esterase (Negative) Urine WBC (0-5) /hpf Urine WBC Clumps (None) /hpf Urine Bacteria (None) /hpf 08/12/17 08/12/17 08/12/17 Range/Units 16:58 16:58 20:18 RBC (4.30-5.90) m/uL Hgb (13.0-17.5) gm/dL Hct (39.0-53.0) % Sodium (137-145) mmol/L Potassium (3.5-5.1) mmol/L Chloride (98-107) mmol/L Carbon Dioxide (22-30) mmol/L BUN (9-20) mg/dL Creatinine (0.66-1.25) mg/dL Glucose (74-99) mg/dL POC Glucose (mg/dL) (75-99) mg/dL Plasma Lactic Acid Efren 2.6 H* (0.7-2.0) mmol/L Calcium (8.4-10.2) mg/dL Magnesium (1.6-2.3) mg/dL AST (17-59) U/L ALT (21-72) U/L Alkaline Phosphatase (38-126) U/L Ammonia 357 H (<30) umol/L Total Creatine Kinase (55-170) U/L Total Protein (6.3-8.2) g/dL Albumin (3.5-5.0) g/dL Urine Protein 1+ H (Negative) Urine Blood Small H (Negative) Ur Leukocyte Esterase Large H (Negative) Urine WBC >182 H (0-5) /hpf Urine WBC Clumps Many H (None) /hpf Urine Bacteria Rare H (None) /hpf 08/12/17 08/12/17 08/13/17 Range/Units 21:20 23:50 05:39 RBC 3.41 L (4.30-5.90) m/uL Hgb 10.8 L (13.0-17.5) gm/dL Hct 32.5 L (39.0-53.0) % Sodium (137-145) mmol/L Potassium 5.2 H (3.5-5.1) mmol/L Chloride 109 H (98-107) mmol/L Carbon Dioxide 18 L (22-30) mmol/L BUN 76 H (9-20) mg/dL Creatinine 3.50 H (0.66-1.25) mg/dL Glucose 122 H (74-99) mg/dL POC Glucose (mg/dL) 134 H (75-99) mg/dL Plasma Lactic Acid Efren (0.7-2.0) mmol/L Calcium 8.2 L (8.4-10.2) mg/dL Magnesium (1.6-2.3) mg/dL AST (17-59) U/L ALT (21-72) U/L Alkaline Phosphatase (38-126) U/L Ammonia (<30) umol/L Total Creatine Kinase (55-170) U/L Total Protein (6.3-8.2) g/dL Albumin (3.5-5.0) g/dL Urine Protein (Negative) Urine Blood (Negative) Ur Leukocyte Esterase (Negative) Urine WBC (0-5) /hpf Urine WBC Clumps (None) /hpf Urine Bacteria (None) /hpf 08/13/17 08/13/17 Range/Units 05:39 05:39 RBC (4.30-5.90) m/uL Hgb (13.0-17.5) gm/dL Hct (39.0-53.0) % Sodium (137-145) mmol/L Potassium (3.5-5.1) mmol/L Chloride 113 H (98-107) mmol/L Carbon Dioxide 17 L (22-30) mmol/L BUN 74 H (9-20) mg/dL Creatinine 3.32 H (0.66-1.25) mg/dL Glucose (74-99) mg/dL POC Glucose (mg/dL) (75-99) mg/dL Plasma Lactic Acid Efren (0.7-2.0) mmol/L Calcium 8.2 L (8.4-10.2) mg/dL Magnesium (1.6-2.3) mg/dL AST 90 H (17-59) U/L ALT 93 H (21-72) U/L Alkaline Phosphatase 294 H (38-126) U/L Ammonia 94 H (<30) umol/L Total Creatine Kinase (55-170) U/L Total Protein 6.2 L (6.3-8.2) g/dL Albumin 2.7 L (3.5-5.0) g/dL Urine Protein (Negative) Urine Blood (Negative) Ur Leukocyte Esterase (Negative) Urine WBC (0-5) /hpf Urine WBC Clumps (None) /hpf Urine Bacteria (None) /hpf Assessment and Plan (1) Hepatic encephalopathy Narrative/Plan: 77-year-old male admitted with confusion elevated ammonia underlying alcohol liver cirrhosis recent diagnosis of hepatocellular carcinoma consistent with acute hepatic encephalopathy improved with lactulose and Xifaxan. Current Visit: Yes Status: Acute Code(s): K72.90 - HEPATIC FAILURE, UNSPECIFIED WITHOUT COMA SNOMED Code(s): 42134052 (2) Hepatocellular carcinoma Current Visit: Yes Status: Acute Code(s): C22.0 - LIVER CELL CARCINOMA SNOMED Code(s): 625626179 (3) Alcoholic cirrhosis of liver with ascites Current Visit: Yes Status: Acute Code(s): K70.31 - ALCOHOLIC CIRRHOSIS OF LIVER WITH ASCITES SNOMED Code(s): 412649874 (4) Chronic kidney disease Narrative/Plan: Suspect DINESH with increased BUN and creatinine Current Visit: Yes Status: Acute Code(s): N18.9 - CHRONIC KIDNEY DISEASE, UNSPECIFIED SNOMED Code(s): 119248293 (5) Portal hypertension Current Visit: Yes Status: Chronic Code(s): K76.6 - PORTAL HYPERTENSION SNOMED Code(s): 27369189 (6) Elevated liver enzymes Current Visit: Yes Status: Acute Code(s): R74.8 - ABNORMAL LEVELS OF OTHER SERUM ENZYMES SNOMED Code(s): 395695656 Plan: 1. Agree with Xifaxan and lactulose as previously prescribed. 2. Nephrology consultation to assist with diuretic management secondary to elevated BUN/creatinine. 3. Possible paracentesis prior to discharge will assessment on a daily basis status post paracentesis 2 days ago with a 8.1 L removed. 4. Low-salt diet. Thank you for this kind referral and the opportunity to participate in the care of your patient. This consultation was discussed with Dr. Ribeiro. The impression and plan of care have been directed as dictated.
[2017-08-13 12:27] LABS: Glucose,Whole Blood 90 mg/dL (75-99)
--- NOTE | 2017-08-13 13:05 | P.PN ---
Subjective Progress Note Date: 08/13/17 Principal diagnosis: 77-year-old male a history of chronic kidney disease, diabetes, underlying alcohol liver cirrhosis portal hypertension ascites with multiple paracentesis with recent diagnosis of hepatocellular carcinoma. Patient admitted with confusion elevated ammonia level 357 Patient feeling much better today, not as confused. Having 2 bowel movements this morning on lactulose and Xifaxan, still having pretty poor appetite. Patient afebrile to events overnight Objective - Vital Signs Vital signs: Vital Signs Temp 97.6 F 08/13/17 11:14 Pulse 61 08/13/17 11:14 Resp 16 08/13/17 11:14 BP 119/49 08/13/17 11:14 Pulse Ox 99 08/13/17 11:14 Intake & Output 08/12/17 08/13/17 08/13/17 18:59 06:59 18:59 Intake Total 2900 Output Total 500 Balance 2400 Weight 89.675 kg 93.5 kg Intake: Intake, IV Titration 2900 Amount Albumin Human 25% 50 ml 200 In Empty Bag 1 bag @ 200 mls/hr IVPB Q15M RAVINDRA Rx#: [id number] Sodium Chloride 0.9% 1, 700 000 ml @ 50 mls/hr IV . Q20H RAVINDRA Rx#:[id number] Sodium Chloride 0.9% 1, 1000 000 ml @ 999 mls/hr IV . Q1H1M ONE Rx#:[id number] Sodium Chloride 0.9% 500 1000 ml @ 999 mls/hr IV .Q31M STA Rx#:[id number] Output: Urine 500 Uretheral (Dobbins) 500 - Exam Constitutional: No acute distress, conversant, pleasant Eyes: Anicteric sclerae, moist conjunctiva, no lid-lag, PERRLA ENMT: NC/AT,Oropharynx clear, no erythema, exudates Neck:Supple, FROM, no masses, or JVD, No carotid bruits; No thyromegaly Lungs: Clear to auscultation, Clear to percussion, Normal respiratory effort, no accessory muscle use Cardiovascular: Heart regular in rate and rhythm, No murmurs, gallops, +2 bilateral lower extremity pitting edema Abdominal: Soft Nontender, nom distended, no guarding, no rebound or rigidity, Normoactive bowel sounds No hepatomegaly, No splenomegaly, No palpable mass No abdominal wall hernia noted Skin: Normal temperature, tone, texture, turgor, No induration No subcutaneous nodules, No rash, lesions, No ulcers Extremities:No digital cyanosis No clubbing, Pedal pulses intact and symmetrical Radial pulses intact and symmetrical Normal gait and station, No calf tenderness Psychiatric: Alert and oriented to person, place and time, Appropriate affect Intact judgement Neuro: Muscles Strength 5/5 in all 4 extremities, Sensation to light touch grossly present throughout, Cranial nerves II-XII grossly intact. No focal sensory deficits - Labs CBC & Chem 7: 08/13/17 05:39 08/13/17 05:39 Labs: Abnormal Lab Results - Last 24 Hours (Table) 08/12/17 08/12/17 08/12/17 Range/Units 16:58 16:58 16:58 RBC 3.97 L (4.30-5.90) m/uL Hgb 12.0 L (13.0-17.5) gm/dL Hct 38.3 L (39.0-53.0) % Sodium 136 L (137-145) mmol/L Potassium 5.9 H (3.5-5.1) mmol/L Chloride (98-107) mmol/L Carbon Dioxide 15 L (22-30) mmol/L BUN 76 H (9-20) mg/dL Creatinine 3.70 H (0.66-1.25) mg/dL Glucose 148 H (74-99) mg/dL POC Glucose (mg/dL) (75-99) mg/dL Plasma Lactic Acid Efren (0.7-2.0) mmol/L Calcium (8.4-10.2) mg/dL Magnesium 3.0 H (1.6-2.3) mg/dL AST 119 H (17-59) U/L ALT 109 H (21-72) U/L Alkaline Phosphatase 397 H (38-126) U/L Ammonia (<30) umol/L Total Creatine Kinase 35 L (55-170) U/L Total Protein (6.3-8.2) g/dL Albumin 2.9 L (3.5-5.0) g/dL Urine Protein (Negative) Urine Blood (Negative) Ur Leukocyte Esterase (Negative) Urine WBC (0-5) /hpf Urine WBC Clumps (None) /hpf Urine Bacteria (None) /hpf 08/12/17 08/12/17 08/12/17 Range/Units 16:58 16:58 20:18 RBC (4.30-5.90) m/uL Hgb (13.0-17.5) gm/dL Hct (39.0-53.0) % Sodium (137-145) mmol/L Potassium (3.5-5.1) mmol/L Chloride (98-107) mmol/L Carbon Dioxide (22-30) mmol/L BUN (9-20) mg/dL Creatinine (0.66-1.25) mg/dL Glucose (74-99) mg/dL POC Glucose (mg/dL) (75-99) mg/dL Plasma Lactic Acid Efren 2.6 H* (0.7-2.0) mmol/L Calcium (8.4-10.2) mg/dL Magnesium (1.6-2.3) mg/dL AST (17-59) U/L ALT (21-72) U/L Alkaline Phosphatase (38-126) U/L Ammonia 357 H (<30) umol/L Total Creatine Kinase (55-170) U/L Total Protein (6.3-8.2) g/dL Albumin (3.5-5.0) g/dL Urine Protein 1+ H (Negative) Urine Blood Small H (Negative) Ur Leukocyte Esterase Large H (Negative) Urine WBC >182 H (0-5) /hpf Urine WBC Clumps Many H (None) /hpf Urine Bacteria Rare H (None) /hpf 08/12/17 08/12/17 08/13/17 Range/Units 21:20 23:50 05:39 RBC 3.41 L (4.30-5.90) m/uL Hgb 10.8 L (13.0-17.5) gm/dL Hct 32.5 L (39.0-53.0) % Sodium (137-145) mmol/L Potassium 5.2 H (3.5-5.1) mmol/L Chloride 109 H (98-107) mmol/L Carbon Dioxide 18 L (22-30) mmol/L BUN 76 H (9-20) mg/dL Creatinine 3.50 H (0.66-1.25) mg/dL Glucose 122 H (74-99) mg/dL POC Glucose (mg/dL) 134 H (75-99) mg/dL Plasma Lactic Acid Efren (0.7-2.0) mmol/L Calcium 8.2 L (8.4-10.2) mg/dL Magnesium (1.6-2.3) mg/dL AST (17-59) U/L ALT (21-72) U/L Alkaline Phosphatase (38-126) U/L Ammonia (<30) umol/L Total Creatine Kinase (55-170) U/L Total Protein (6.3-8.2) g/dL Albumin (3.5-5.0) g/dL Urine Protein (Negative) Urine Blood (Negative) Ur Leukocyte Esterase (Negative) Urine WBC (0-5) /hpf Urine WBC Clumps (None) /hpf Urine Bacteria (None) /hpf 08/13/17 08/13/17 Range/Units 05:39 05:39 RBC (4.30-5.90) m/uL Hgb (13.0-17.5) gm/dL Hct (39.0-53.0) % Sodium (137-145) mmol/L Potassium (3.5-5.1) mmol/L Chloride 113 H (98-107) mmol/L Carbon Dioxide 17 L (22-30) mmol/L BUN 74 H (9-20) mg/dL Creatinine 3.32 H (0.66-1.25) mg/dL Glucose (74-99) mg/dL POC Glucose (mg/dL) (75-99) mg/dL Plasma Lactic Acid Efren (0.7-2.0) mmol/L Calcium 8.2 L (8.4-10.2) mg/dL Magnesium (1.6-2.3) mg/dL AST 90 H (17-59) U/L ALT 93 H (21-72) U/L Alkaline Phosphatase 294 H (38-126) U/L Ammonia 94 H (<30) umol/L Total Creatine Kinase (55-170) U/L Total Protein 6.2 L (6.3-8.2) g/dL Albumin 2.7 L (3.5-5.0) g/dL Urine Protein (Negative) Urine Blood (Negative) Ur Leukocyte Esterase (Negative) Urine WBC (0-5) /hpf Urine WBC Clumps (None) /hpf Urine Bacteria (None) /hpf Microbiology - Last 24 Hours (Table) 08/13/17 06:30 Urine Culture - Preliminary Urine,Catheterized Assessment and Plan (1) Acute renal failure superimposed on stage 3 chronic kidney disease Narrative/Plan: * Creatinine trending down from 3.5-3.3, nephrology Dr. Burnette following * Hyperkalemia has resolved, having ongoing metabolic acidosis consider adding bicarb * Concerns for hepatorenal syndrome with recent large volume paracentesis, will try volume expansion with 50 grams of albumin if not effective will likely need increase midodrine and octreotide * Maintain adequate BP * received 1.5L of IVF in the ED Current Visit: Yes Status: Acute Code(s): N17.9 - ACUTE KIDNEY FAILURE, UNSPECIFIED; N18.3 - CHRONIC KIDNEY DISEASE, STAGE 3 (MODERATE) SNOMED Code(s) : 259031084 (2) Alcoholic cirrhosis of liver with ascites Narrative/Plan: * Status post large volume paracentesis 8.4 L on 08/11/17 * chronic transaminits at baseline * hold lasix, aldactone due to DINESH * hold propranolol due to decreased Bp Current Visit: Yes Status: Acute Code(s): K70.31 - ALCOHOLIC CIRRHOSIS OF LIVER WITH ASCITES SNOMED Code(s): 300914788 (3) Hepatic encephalopathy Narrative/Plan: * CT of the head negative for any acute intracranial pathology * Continue with lactulose and Xifaxan serum ammonia level trending down from 357 -93 * Appreciate GI recommendations * Continue to Hold morphine, flexaril, gabapentin, norco Current Visit: Yes Status: Acute Code(s): K72.90 - HEPATIC FAILURE, UNSPECIFIED WITHOUT COMA SNOMED Code(s): 33956051 (4) Hepatocellular carcinoma Current Visit: Yes Status: Acute Code(s): C22.0 - LIVER CELL CARCINOMA SNOMED Code(s): 512252627 (5) Urinary tract infection Narrative/Plan: * Urine culture pending * Patient afebrile without leukocytosis, patient not septic lactic acidosis was secondary to alcoholic cirrhosis * continue empiric treatment with Rocephin Current Visit: Yes Status: Acute Code(s): N39.0 - URINARY TRACT INFECTION, SITE NOT SPECIFIED SNOMED Code(s): 18201526 Plan: * Patient lives at home with his significant other Alice * We will need ongoing monitoring to make sure that his creatinine continues to trend down we'll also continue to trend his serum ammonia level
[2017-08-13 13:16] VITALS: BMI 34.2
--- NOTE | 2017-08-13 16:40 | P.CONS ---
History of Present Illness - Reason for Consult Consult date: 08/13/17 - History of Present Illness Mr Nichols is a 77 yr old white male, initially seen in consult at [facility] on 07/06/17. He has a history of multiple medical problems, including heavy alcohol use in the past. He had been admitted in 06/17 with abdominal distention, progressive abdominal pain for about 2 months as well as loose stools off and on for about 4-6 months. He had lost about 40 pounds over the prior 4-6 months. He had extensive abdominal imaging done, including abdominal ultrasound, CT of the abdomen and pelvis, and MRI. He was found to have a cirrhotic appearing liver, with a 7 cm mass in the right hepatic lobe and ascites. He had a paracentesis on 06/05/17 which was negative for malignancy. He then had a liver biopsy on 06/23/79is positive for hepatocellular carcinoma. AFP was greater than 8000. The patient was readmitted with similar symptoms and was seen during that admission. He had additional staging studies done which showed no evidence of metastatic disease. He was then referred to [facility] hepatobiliary service. He had repeat CT scan done on 07/31/17 there. This showed more extensive disease, with nonocclusive filling defect in the right hepatic vein extending into the IVC suggesting tumor thrombus. This extended to the inferior atriocaval junction. There are 2 smaller lesions or thrombus in the intrahepatic IVC. Significant thrombus was noted involving the left main portal vein. There is also thrombus in the distal aspect of the main right portal vein. There was diffuse heterogenous enhancement of the hepatic parenchyma with suspicious lesions of hyper enhancement and washout involving both lobes, suggestive of involvement with malignancy. The largest lesion was in the left hepatic lobe measuring 6.1 cm, while in the right it measured 5.1 cm. There was also a discrete nodule in the left hepatic lobe measuring 1.6 cm also suspicious for HCC. There was a 2 cm soft tissue extension arising from the posterior aspect of the right hepatic lobe extending into the perihepatic ascites suspicious for tumor extension. In addition there were bilateral adrenal nodules, 3.2 cm on the right and 2.1 cm on the left, increased in size from 07/06/17. There was a 3.7 cm right retrocrural nodes also increased from before. These findings were suspicious for metastatic disease. There was moderate to large volume ascites. Based on the above findings, he was not felt to be a candidate for loco regional treatment. He wanted to pursue further care locally due to proximity, and was seen for his first office visit on 08/12/17. The patient had been in ECF for subacute rehabilitation since his discharge, and was discharged home on 08/06/17. He has required periodic paracentesis, with drainage of 8.4 L on 08/10/17 He was seen in the office on 08/11/17 and active treatment with sorafenib, vs comfort care was discussed. Labs in the office showed DINESH, with hyperkalemia and other metabolic abnormalities. He was thus sent into the ER and admitted for further management. Per his SO, he had been overall weak, with poor appetite and oral intake over the past week. He had had a fall on 08/10/17 when he went out on his own without a walker. Review of Systems Constitutional: Reports anorexia, Reports fatigue, Reports poor appetite, Reports weakness, Reports weight loss Eyes: denies blurred vision, denies pain Ears: deny: decreased hearing, ear discharge, earache, tinnitus Ears, nose, mouth and throat: Denies headache, Denies sore throat Cardiovascular: Reports decreased exercise tolerance, Reports shortness of breath, Denies chest pain Respiratory: Reports dyspnea Gastrointestinal: Reports as per HPI, Reports diarrhea, Reports nausea Genitourinary: Reports as per HPI Musculoskeletal: Reports muscle weakness Integumentary: Denies pruritus, Denies rash Neurological: Reports confusion (intermittent) Psychiatric: Reports confusion Endocrine: Reports fatigue, Reports weight change Hematologic/Lymphatic: Reports as per HPI Past Medical History Past Medical History: Cancer, Diabetes Mellitus, Hyperlipidemia, Hypertension, Prostate Disorder, Renal Disease Additional Past Medical History / Comment(s): Hepatocellular carcinoma w/blood clot lt of tumor-per , end-stage cirrhosis/ascities requiring recurrent paracentesis,prostate cancer 2012, hemorrhoids,"growth on rt eye", hx of stress test , uti, falls. pt's stated that pt was dx w/ dm-2 10 years ago and has been on oral agents but since about afater first week at [facility] they took him off his dm meds and were'nt checking bs. History of Any Multi-Drug Resistant Organisms: None Reported Past Surgical History: Prostate Surgery Additional Past Surgical History / Comment(s): oral surgery, liver biopsy, recurrant paracentesis Past Anesthesia/Blood Transfusion Reactions: No Reported Reaction Smoking Status: Former smoker - Past Family History Father Family Medical History: Pneumonia Additional Family Medical History / Comment(s): migraines. age 49 Mother Additional Family Medical History / Comment(s): polio as child. age 79 not sure of cause but poss cancer. Medications and Allergies Home Medications Medication Instructions Recorded Confirmed Type Cholecalciferol (Vitamin D3) 2,000 unit PO DAILY@89906/14/17 08/12/17 History [Vitamin D3] Felodipine [Felodipine ER] 10 mg PO DAILY@00 06/14/17 08/12/17 History Gabapentin [Neurontin] 100 mg PO TID@0600,1400,2200 06/14/17 08/12/17 History Omeprazole 20 mg PO HS@209906/14/17 08/12/17 History Tamsulosin [Flomax] 0.4 mg PO BID@0900,209906/14/17 08/12/17 History Magnesium Oxide [Mag-Ox] 400 mg PO QID@,,,07/05/17 08/12/17 History MORPHINE ORAL SAVITA 2mg/mL [Morphine 6 mg PO Q6H PRN #100 ml 07/08/17 08/12/17 Rx Oral Soln 2 MG/ML] Furosemide [Lasix] 40 mg PO BID@0900,1400 08/02/17 08/12/17 History Midodrine [ProAmatine] 10 mg PO TID@0600,1400,2200 08/02/17 08/12/17 History Propranolol HCl [Inderal Xl] 120 mg PO DAILY@89908/02/17 08/12/17 History Spironolactone [Aldactone] 12.5 mg PO DAILY@89908/02/17 08/12/17 History Cyclobenzaprine [Flexeril] 5 mg PO Q8H PRN 08/12/17 08/12/17 History HYDROcodone/APAP 5-325MG [Lewellen 1 tab PO Q6H PRN 08/12/17 08/12/17 History 5-325] Lactulose 20 gm PO QID@,,,08/12/17 08/12/17 History Melatonin 5 mg PO HS PRN 08/12/17 08/12/17 History Rifaximin [Xifaxan] 550 mg PO QID@09,13,17,21 08/12/17 08/12/17 History Allergies Allergy/AdvReac Type Severity Reaction Status Date / Time No Known Allergies Allergy Verified 08/12/17 16:58 Physical Exam Vitals: Vital Signs Temp Pulse Pulse Resp BP BP BP 08/13/17 11:14 97.6 F 61 16 119/49 08/13/17 09:00 97.6 F 61 16 106/59 08/13/17 06:38 71 103/64 08/13/17 04:00 97.6 F 71 18 94/59 08/12/17 23:47 18 08/12/17 22:50 97.2 F L 58 L 18 100/55 08/12/17 20:55 97.7 F 58 L 18 96/56 08/12/17 20:00 56 L 16 101/55 08/12/17 19:00 52 L 106/57 08/12/17 18:00 53 L 98/53 08/12/17 17:00 53 L 96/54 08/12/17 16:08 96.7 F L 55 L 18 97/51 Pulse Ox 08/13/17 11:14 99 08/13/17 09:00 97 08/13/17 06:38 08/13/17 04:00 97 08/12/17 23:47 08/12/17 22:50 96 08/12/17 20:55 99 08/12/17 20:00 93 L 08/12/17 19:00 96 08/12/17 18:00 95 08/12/17 17:00 95 08/12/17 16:08 96 Intake and Output 08/12/17 08/13/17 08/13/17 22:59 06:59 14:59 Intake Total 2900 Output Total 500 Balance 2400 Intake: Intake, IV Titration 2900 Amount Albumin Human 25% 50 ml 200 In Empty Bag 1 bag @ 200 mls/hr IVPB Q15M RAVINDRA Rx#: [id number] Sodium Chloride 0.9% 1, 700 000 ml @ 50 mls/hr IV . Q20H RAVINDRA Rx#:[id number] Sodium Chloride 0.9% 1, 1000 000 ml @ 999 mls/hr IV . Q1H1M ONE Rx#:[id number] Sodium Chloride 0.9% 500 1000 ml @ 999 mls/hr IV .Q31M STA Rx#:[id number] Output: Urine 500 Uretheral (Dobbins) 500 Other: Weight 89.675 kg 93.5 kg - Constitutional General appearance: no acute distress - EENT Eyes: EOMI, PERRLA ENT: hearing grossly normal, normal oropharynx - Neck Neck: no lymphadenopathy Thyroid: bilateral: normal size - Respiratory Respiratory: bilateral: diminished - Cardiovascular Rhythm: regular Heart sounds: normal: S1, S2 - Gastrointestinal free fluid positive General gastrointestinal: distended - Genitourinary Male genitourinary: scrotal edema - Integumentary Integumentary: normal - Neurologic Neurologic: CNII-XII intact - Musculoskeletal Musculoskeletal: generalized weakness, strength equal bilaterally - Psychiatric currently oriented, slow affect Psychiatric: A&O x's 3 Results CBC & Chem 7: 08/13/17 05:39 08/13/17 05:39 Labs: Abnormal Lab Results - Last 24 Hours (Table) 08/12/17 08/12/17 08/12/17 Range/Units 16:58 16:58 16:58 RBC 3.97 L (4.30-5.90) m/uL Hgb 12.0 L (13.0-17.5) gm/dL Hct 38.3 L (39.0-53.0) % Sodium 136 L (137-145) mmol/L Potassium 5.9 H (3.5-5.1) mmol/L Chloride (98-107) mmol/L Carbon Dioxide 15 L (22-30) mmol/L BUN 76 H (9-20) mg/dL Creatinine 3.70 H (0.66-1.25) mg/dL Glucose 148 H (74-99) mg/dL POC Glucose (mg/dL) (75-99) mg/dL Plasma Lactic Acid Efren (0.7-2.0) mmol/L Calcium (8.4-10.2) mg/dL Magnesium 3.0 H (1.6-2.3) mg/dL AST 119 H (17-59) U/L ALT 109 H (21-72) U/L Alkaline Phosphatase 397 H (38-126) U/L Ammonia (<30) umol/L Total Creatine Kinase 35 L (55-170) U/L Total Protein (6.3-8.2) g/dL Albumin 2.9 L (3.5-5.0) g/dL Urine Protein (Negative) Urine Blood (Negative) Ur Leukocyte Esterase (Negative) Urine WBC (0-5) /hpf Urine WBC Clumps (None) /hpf Urine Bacteria (None) /hpf 08/12/17 08/12/17 08/12/17 Range/Units 16:58 16:58 20:18 RBC (4.30-5.90) m/uL Hgb (13.0-17.5) gm/dL Hct (39.0-53.0) % Sodium (137-145) mmol/L Potassium (3.5-5.1) mmol/L Chloride (98-107) mmol/L Carbon Dioxide (22-30) mmol/L BUN (9-20) mg/dL Creatinine (0.66-1.25) mg/dL Glucose (74-99) mg/dL POC Glucose (mg/dL) (75-99) mg/dL Plasma Lactic Acid Efren 2.6 H* (0.7-2.0) mmol/L Calcium (8.4-10.2) mg/dL Magnesium (1.6-2.3) mg/dL AST (17-59) U/L ALT (21-72) U/L Alkaline Phosphatase (38-126) U/L Ammonia 357 H (<30) umol/L Total Creatine Kinase (55-170) U/L Total Protein (6.3-8.2) g/dL Albumin (3.5-5.0) g/dL Urine Protein 1+ H (Negative) Urine Blood Small H (Negative) Ur Leukocyte Esterase Large H (Negative) Urine WBC >182 H (0-5) /hpf Urine WBC Clumps Many H (None) /hpf Urine Bacteria Rare H (None) /hpf 08/12/17 08/12/17 08/13/17 Range/Units 21:20 23:50 05:39 RBC 3.41 L (4.30-5.90) m/uL Hgb 10.8 L (13.0-17.5) gm/dL Hct 32.5 L (39.0-53.0) % Sodium (137-145) mmol/L Potassium 5.2 H (3.5-5.1) mmol/L Chloride 109 H (98-107) mmol/L Carbon Dioxide 18 L (22-30) mmol/L BUN 76 H (9-20) mg/dL Creatinine 3.50 H (0.66-1.25) mg/dL Glucose 122 H (74-99) mg/dL POC Glucose (mg/dL) 134 H (75-99) mg/dL Plasma Lactic Acid Efren (0.7-2.0) mmol/L Calcium 8.2 L (8.4-10.2) mg/dL Magnesium (1.6-2.3) mg/dL AST (17-59) U/L ALT (21-72) U/L Alkaline Phosphatase (38-126) U/L Ammonia (<30) umol/L Total Creatine Kinase (55-170) U/L Total Protein (6.3-8.2) g/dL Albumin (3.5-5.0) g/dL Urine Protein (Negative) Urine Blood (Negative) Ur Leukocyte Esterase (Negative) Urine WBC (0-5) /hpf Urine WBC Clumps (None) /hpf Urine Bacteria (None) /hpf 08/13/17 08/13/17 Range/Units 05:39 05:39 RBC (4.30-5.90) m/uL Hgb (13.0-17.5) gm/dL Hct (39.0-53.0) % Sodium (137-145) mmol/L Potassium (3.5-5.1) mmol/L Chloride 113 H (98-107) mmol/L Carbon Dioxide 17 L (22-30) mmol/L BUN 74 H (9-20) mg/dL Creatinine 3.32 H (0.66-1.25) mg/dL Glucose (74-99) mg/dL POC Glucose (mg/dL) (75-99) mg/dL Plasma Lactic Acid Efren (0.7-2.0) mmol/L Calcium 8.2 L (8.4-10.2) mg/dL Magnesium (1.6-2.3) mg/dL AST 90 H (17-59) U/L ALT 93 H (21-72) U/L Alkaline Phosphatase 294 H (38-126) U/L Ammonia 94 H (<30) umol/L Total Creatine Kinase (55-170) U/L Total Protein 6.2 L (6.3-8.2) g/dL Albumin 2.7 L (3.5-5.0) g/dL Urine Protein (Negative) Urine Blood (Negative) Ur Leukocyte Esterase (Negative) Urine WBC (0-5) /hpf Urine WBC Clumps (None) /hpf Urine Bacteria (None) /hpf Microbiology - Last 24 Hours (Table) 08/13/17 06:30 Urine Culture - Preliminary Urine,Catheterized CT Scan - head: report reviewed Assessment and Plan (1) Acute renal failure Narrative/Plan: this is likely multifactorial. The patient has been having large volume ascites requiring paracentesis, n addition to poor oral intake. Therefore he is likely intravascularly depleted significantly. given his significant liver compromise, a component of hepatorenal syndrome cannot be ruled out either. The patient is currently being treated with hydration. It was discussed with him and his SO, that even if he improves, this is likely to recur. Current Visit: Yes Status: Acute Code(s): N17.9 - ACUTE KIDNEY FAILURE, UNSPECIFIED SNOMED Code(s): 00085647 (2) Hepatocellular carcinoma Narrative/Plan: the patient's disease is too extensive in the liver to permit locoregional therapy. In addition there is concern for metastatic disease. Therefore the only option for him would be systemic therapy with sorafenib in the first-line being the standard. The patient's performance status however is very poor, with his diagnosis of acute kidney injury further affecting his baseline health. Therefore there is significant concern for tolerance issues with this medication. In addition the efficacy of the medication in patients with advanced liver dysfunction is uncertain. The treatment would not be curable, and on an average could potentially improve survival by about 3-4 months. Therefore it was not felt that the patient is an optimal candidate for the same. Comfort care was discussed with him yesterday. The patient and his SO informed me today that he has decided not to try the sorafenib. This is quite reasonable in my opinion. I therefore recommended comfort care. The patient lives in [place] and wants to go home. His SO was strongly encouraged to get in touch with hospice. I also discussed the case with case management, we will try to provide him information about hospice in general, as well as the resources in this regard available in [place]. Current Visit: Yes Status: Acute Code(s): C22.0 - LIVER CELL CARCINOMA SNOMED Code(s): 078597267
[2017-08-13 16:57] LABS: Glucose,Whole Blood 132 mg/dL (75-99)
[2017-08-13] MEDS: DEXTROSE 5% IN WATER 1,000 ML with SODIUM BICARB (1 MEQ/ML) 150 ML IV SCH (18:10)
--- NOTE | 2017-08-13 21:10 | CONS ---
CONSULTATION DATE OF SERVICE: 08/13/2017. REASON FOR CONSULT: Renal failure. HISTORY OF PRESENT ILLNESS: The patient is a 77-year-old male with recent diagnosis of hepatocellular carcinoma. Patient also has underlying liver cirrhosis. The patient does have metastatic disease now and he is not a candidate for chemotherapy. He has been requiring paracentesis. The patient states he had been feeling weak. He denies any significant nausea, vomiting, abdominal pain. He recently had a large volume paracentesis on 08/10/2017 with 8.4 L removed. Serum creatinine was 3.7 mg/dL on initial admission, it is now down to 3.32. Previous creatinine was 1.59 on 07/07/2017. The patient is currently maintained on normal saline at 50 mL an hour. Blood pressure has been low. He has had good urine output. The patient is maintained on midodrine. PAST MEDICAL HISTORY: Metastatic hepatocellular cancer, previous history of acute kidney injury, liver cirrhosis with recurrent paracenteses, type 2 diabetes, hyperlipidemia, hypertension, history of prostatic cancer. PAST SURGICAL HISTORY: Prostatic surgery, liver biopsy, paracentesis. SOCIAL HISTORY: Patient is a former smoker. No history of drug abuse or alcohol abuse. MEDICATIONS: Include vitamin D3, felodipine, Neurontin, Flomax, omeprazole, magnesium, Lasix, midodrine, Inderal, Aldactone, Flexeril, lactulose, melatonin, Rifaximin. ALLERGIES: None. PHYSICAL EXAMINATION: Patient is currently comfortable, awake. He is not in any acute distress. He is alert and oriented x3. Blood pressure was 119/49, heart rate 61 per minute. Patient is afebrile. Examination of the heart S1, S2. Examination lungs bilateral breath sounds are heard. Decreased breath sounds at bases. Abdomen is soft, distended, nontender. Examination lower extremity shows edema 1+ bilaterally. [employer] exam is grossly intact. Patient moving all 4 extremities. LABS: Sodium 142, potassium 4.6, chloride 113, CO2 of 17, BUN 74, serum creatinine 3.32, hemoglobin 10.8 g/dL, albumin is 2.7. ASSESSMENT: 1. Acute kidney injury secondary to hypotension and hypoperfusion, currently improving. Unlikely to be hepatorenal syndrome. 2. Mild hyperkalemia associated with acute kidney injury, currently improved. 3. Metabolic acidosis secondary to renal failure as well as diarrhea from lactulose. We will hold off on a sodium bicarb given the edema. We can change the IV fluids to IV bicarb to correct the acidosis. 4. Metastatic hepatocellular cancer. 5. Recurrent ascites status post paracentesis secondary to malignancy. PLAN: Continue IV fluids. Change to IV bicarb. Repeat labs in a.m. Discontinue Norvasc. Continue with midodrine. MMODL / IJN: [id number] /
[2017-08-13 21:24] LABS: Glucose,Whole Blood 156 mg/dL (75-99)
[2017-08-14] MEDS: MIDODRINE 5 MG TAB PO SCH ×3 (06:30→22:35)
[2017-08-14 07:31] LABS: Basophils % (A) 0 %; Eosinophils # (A) 0.1 k/uL (0-0.7); Eosinophils % (A) 2 %; HCT 37.5 % (39.0-53.0); HGB 12.2 gm/dL (13.0-17.5); Lymphocytes # (A) 0.8 k/uL (1.0-4.8); Lymphocytes % (A) 15 %; MCH 31.5 pg (25.0-35.0); MCHC 32.6 g/dL (31.0-37.0); MCV 96.8 fL (80.0-100.0); Mean Platelet Volume 8.5; Monocytes # (A) 0.4 k/uL (0-1.0); Monocytes % (A) 8 %; Neutrophils # (A) 3.8 k/uL (1.3-7.7); Neutrophils % (A) 72 %; Platelet Count 168 k/uL (150-450); RBC 3.87 m/uL (4.30-5.90); RDW 15.5 % (11.5-15.5); WBC 5.3 k/uL (3.8-10.6)
[2017-08-14] MEDS: TAMSULOSIN 0.4 MG CAP.ER.24H PO SCH ×2 (08:00→22:35)
[2017-08-14 08:01] LABS: Glucose,Whole Blood 129 mg/dL (75-99)
[2017-08-14] MEDS: LACTULOSE 20 GM/30 ML CUP PO SCH ×4 (08:01→22:35)
[2017-08-14] MEDS: PANTOPRAZOLE 40 MG TABLET PO SCH (08:01)
[2017-08-14] MEDS: RIFAXIMIN 550 MG TABLET PO SCH ×2 (08:01→22:35)
[2017-08-14 08:05] LABS: Calcium 8.3 mg/dL (8.4-10.2); Potassium 4.4 mmol/L (3.5-5.1)
[2017-08-14] MEDS ORDERED: traMADol 50 MG TAB PO PRN ×2 (08:15→08:57)
[2017-08-14] MEDS: cefTRIAXone IN SWFI 1,000 MG/10 ML SYRINGE IVP SCH (10:07)
[2017-08-14 12:43] LABS: Glucose,Whole Blood 128 mg/dL (75-99)
--- NOTE | 2017-08-14 12:58 | P.PN ---
Subjective Progress Note Date: 08/14/17 Principal diagnosis: 77-year-old male a history of chronic kidney disease, diabetes, underlying alcohol liver cirrhosis portal hypertension ascites with multiple paracentesis with recent diagnosis of metastatic hepatocellular carcinoma to bilateral adrenal glands with tumor thrombus in the right hepatic vein, left and right main portal vein extending into the IV. Patient admitted with confusion elevated ammonia level 357, acute kidney injury, hyperkalemia. The patient was found to be a poor candidate for local regional therapy as the patient's disease is too extensive, the only option for systemic therapy would be sorafenib, of the patient and his significant other performed Dr. Dhaliwal that they have decided not to proceed with systemic therapy with sorafenib. Patient feeling much better today, not as confused. Having 2 bowel movements this morning on lactulose and Xifaxan, still having pretty poor appetite. Patient afebrile to events overnight Objective - Vital Signs Vital signs: Vital Signs Temp 97.4 F L 08/14/17 07:00 Pulse 71 08/14/17 07:00 Resp 18 08/14/17 07:00 BP 117/56 08/14/17 07:00 Pulse Ox 96 08/14/17 07:00 Intake & Output 08/13/17 08/14/17 08/14/17 18:59 06:59 18:59 Intake Total 3620 550 Output Total 500 650 200 Balance 3120 -100 -200 Weight 93.5 kg 92.5 kg Intake: Intake, IV Titration 2900 350 Amount Albumin Human 25% 50 ml 200 In Empty Bag 1 bag @ 200 mls/hr IVPB Q15M RAVINDRA Rx#: [id number] Dextrose 5% in Water 1, 350 000 ml @ 50 mls/hr IV . Q23H RAVINDRA with Sodium Bicarb (1 Meq/ml) 150 ml Rx#:[id number] Sodium Chloride 0.9% 1, 700 000 ml @ 50 mls/hr IV . Q20H RAVINDRA Rx#:[id number] Sodium Chloride 0.9% 1, 1000 000 ml @ 999 mls/hr IV . Q1H1M ONE Rx#:[id number] Sodium Chloride 0.9% 500 1000 ml @ 999 mls/hr IV .Q31M STA Rx#:[id number] Oral 720 200 Output: Urine 500 550 200 Uretheral (Dobbins) 500 200 Stool 100 Other: Voiding Method Indwelling Catheter Indwelling Catheter Indwelling Catheter # Bowel Movements 2 2 - Exam Constitutional: No acute distress, conversant, pleasant Eyes: Anicteric sclerae, moist conjunctiva, no lid-lag, PERRLA ENMT: NC/AT,Oropharynx clear, no erythema, exudates Neck:Supple, FROM, no masses, or JVD, No carotid bruits; No thyromegaly Lungs: Clear to auscultation, Clear to percussion, Normal respiratory effort, no accessory muscle use Cardiovascular: Heart regular in rate and rhythm, No murmurs, gallops, +2 bilateral lower extremity pitting edema Abdominal: Soft Nontender, nom distended, no guarding, no rebound or rigidity, Normoactive bowel sounds No hepatomegaly, No splenomegaly, No palpable mass No abdominal wall hernia noted Skin: Normal temperature, tone, texture, turgor, No induration No subcutaneous nodules, No rash, lesions, No ulcers Extremities:No digital cyanosis No clubbing, Pedal pulses intact and symmetrical Radial pulses intact and symmetrical Normal gait and station, No calf tenderness Psychiatric: Alert and oriented to person, place and time, Appropriate affect Intact judgement Neuro: Muscles Strength 5/5 in all 4 extremities, Sensation to light touch grossly present throughout, Cranial nerves II-XII grossly intact. No focal sensory deficits - Labs CBC & Chem 7: 08/14/17 07:09 08/14/17 07:09 Labs: Abnormal Lab Results - Last 24 Hours (Table) 08/13/17 08/13/17 08/14/17 Range/Units 16:49 21:04 07:09 RBC 3.87 L (4.30-5.90) m/uL Hgb 12.2 L (13.0-17.5) gm/dL Hct 37.5 L (39.0-53.0) % Lymphocytes # 0.8 L (1.0-4.8) k/uL Chloride (98-107) mmol/L Carbon Dioxide (22-30) mmol/L BUN (9-20) mg/dL Creatinine (0.66-1.25) mg/dL Glucose (74-99) mg/dL POC Glucose (mg/dL) 132 H 156 H (75-99) mg/dL Calcium (8.4-10.2) mg/dL 08/14/17 08/14/17 Range/Units 07:09 07:58 RBC (4.30-5.90) m/uL Hgb (13.0-17.5) gm/dL Hct (39.0-53.0) % Lymphocytes # (1.0-4.8) k/uL Chloride 112 H (98-107) mmol/L Carbon Dioxide 16 L (22-30) mmol/L BUN 70 H (9-20) mg/dL Creatinine 2.92 H (0.66-1.25) mg/dL Glucose 116 H (74-99) mg/dL POC Glucose (mg/dL) 129 H (75-99) mg/dL Calcium 8.3 L (8.4-10.2) mg/dL Microbiology - Last 24 Hours (Table) 08/13/17 06:30 Urine Culture - Final Urine,Catheterized Assessment and Plan (1) Acute renal failure superimposed on stage 3 chronic kidney disease Narrative/Plan: * Creatinine trending down from 3.5 to 2.92, nephrology Dr. Burnette following * Hyperkalemia has resolved, having ongoing metabolic acidosis consider adding bicarb * We'll need input from nephrology on whether the patient can be restarted on diuretics Current Visit: Yes Status: Acute Code(s): N17.9 - ACUTE KIDNEY FAILURE, UNSPECIFIED; N18.3 - CHRONIC KIDNEY DISEASE, STAGE 3 (MODERATE) SNOMED Code(s) : 491985478 (2) Alcoholic cirrhosis of liver with ascites Narrative/Plan: * Status post large volume paracentesis 8.4 L on 08/11/17 * chronic transaminits at baseline * hold lasix, aldactone due to DINESH * hold propranolol due to decreased Bp * We'll need input from GI on whether the patient should be restarted on his diuretics in the light of worsening metastatic hepatocellular carcinoma Current Visit: Yes Status: Acute Code(s): K70.31 - ALCOHOLIC CIRRHOSIS OF LIVER WITH ASCITES SNOMED Code(s): 931253105 (3) Hepatic encephalopathy Narrative/Plan: * CT of the head negative for any acute intracranial pathology * Continue with lactulose and Xifaxan serum ammonia level trending down from 357 -93 * Appreciate GI recommendations * Continue to Hold morphine, flexaril, gabapentin, norco Current Visit: Yes Status: Acute Code(s): K72.90 - HEPATIC FAILURE, UNSPECIFIED WITHOUT COMA SNOMED Code(s): 68963917 (4) Hepatocellular carcinoma Current Visit: Yes Status: Acute Code(s): C22.0 - LIVER CELL CARCINOMA SNOMED Code(s): 322032189 (5) Urinary tract infection Narrative/Plan: * Urine culture pending * Patient afebrile without leukocytosis, patient not septic lactic acidosis was secondary to alcoholic cirrhosis * continue empiric treatment with Rocephin Current Visit: Yes Status: Acute Code(s): N39.0 - URINARY TRACT INFECTION, SITE NOT SPECIFIED SNOMED Code(s): 84517411 Plan: Discussed with the patient's significant other the patient's overall poor prognosis and recommendations by Dr. Dhaliwal to proceed with comfort care and possibly hospice. At this point the patient would like more information, social work consulted to provide more information regarding comfort care. We' ll discuss further tomorrow
--- NOTE | 2017-08-14 15:45 | PN ---
PROGRESS NOTE The patient is seen for followup for acute kidney injury. He is currently maintained on IV fluids. Renal function continues to improve. Patient has had good urine output. PHYSICAL EXAMINATION: On examination today, blood pressure is 117/56, heart rate 71 per minute. Patient is afebrile. Examination of the heart: S1, S2. Examination lungs: Bilateral breath sounds are heard. Abdomen is soft, nontender and distended with ascites. Examination lower extremity shows edema 2+ bilaterally. LABS: Sodium 142, potassium 4.4, chloride 112, CO2 16, BUN 70, serum creatinine 2.92, hemoglobin 12.2 g/dL. ASSESSMENT: 1. Acute kidney injury secondary to hypotension hypoperfusion and large volume paracentesis, currently nonoliguric with improving renal function. The patient is maintained on IV fluids at 50 mL an hour and it is mainly IV bicarb. His serum bicarb did not change much. 2. Non gap metabolic acidosis secondary to diarrhea and renal failure. I will discontinue the IV bicarb and we can add oral sodium bicarb which does have a side effect of worsening edema secondary to salt load. 3. Hepatocellular cancer. PLAN: Encourage increased oral intake and add oral sodium bicarb and repeat labs in a.m. Continue with the midodrine. MMODL / IJN: [id number] /
[2017-08-14 17:17] LABS: Glucose,Whole Blood 124 mg/dL (75-99)
[2017-08-14 20:16] LABS: Glucose,Whole Blood 156 mg/dL (75-99)
[2017-08-14] MEDS: DEXTROSE 5% IN WATER 1,000 ML with SODIUM BICARB (1 MEQ/ML) 150 ML IV SCH (22:34)
[2017-08-14] MEDS: SODIUM BICARBONATE TAB 650 MG TAB PO SCH (22:35)
[2017-08-15] MEDS: MIDODRINE 5 MG TAB PO SCH ×3 (06:12→21:06)
[2017-08-15 07:33] LABS: Glucose,Whole Blood 105 mg/dL (75-99)
[2017-08-15] MEDS: SODIUM BICARBONATE TAB 650 MG TAB PO SCH ×2 (09:14→21:05)
[2017-08-15] MEDS: TAMSULOSIN 0.4 MG CAP.ER.24H PO SCH ×2 (09:14→21:05)
[2017-08-15] MEDS: RIFAXIMIN 550 MG TABLET PO SCH ×2 (09:14→21:05)
[2017-08-15] MEDS: PANTOPRAZOLE 40 MG TABLET PO SCH (09:15)
[2017-08-15] MEDS: LACTULOSE 20 GM/30 ML CUP PO SCH ×4 (09:15→21:05)
[2017-08-15] MEDS: cefTRIAXone IN SWFI 1,000 MG/10 ML SYRINGE IVP SCH (09:15)
[2017-08-15 12:04] LABS: Glucose,Whole Blood 140 mg/dL (75-99)
[2017-08-15] MEDS: FUROSEMIDE 40 MG TAB PO SCH (13:04)
--- NOTE | 2017-08-15 13:54 | PN ---
PROGRESS NOTE DATE OF SERVICE: 08/15/2017. HISTORY: Patient is seen for followup for acute kidney injury. He is currently doing well. Patient is lying in bed. He is comfortable. He is not in any acute distress. His creatinine was down to 2.9 yesterday. Previous creatinine was 1.59 in July 2017. Blood pressure is not too low, staying at about 125-116 mmHg. PHYSICAL EXAMINATION: Patient is comfortable. Blood pressure is 116/62. He is afebrile. Examination of the heart S1, S2. Examination lungs, bilateral breath sounds are heard. Abdomen is soft, nontender, distended. Examination of lower extremity shows edema 2+ bilaterally. LABS: Not available from today. Serum creatinine was 2.92 on 08/14/2017. ASSESSMENT: 1. Acute kidney injury secondary to hypotension hypoperfusion. No evidence of hepatorenal syndrome. Renal function has been slowly improving. We will check labs today. We can discontinue the IV fluids and start oral Lasix. Blood pressure is not significantly low. 2. Metastatic hepatocellular cancer. 3. Non-gap metabolic acidosis secondary to diarrhea from lactulose and renal failure. Currently maintained on oral sodium bicarb. PLAN: Continue oral sodium bicarb. Add low-dose oral Lasix. Check labs today. May discontinue IV fluids. Encourage increased oral intake. Overall prognosis is guarded. MMODL / IJN: [id number] /
[2017-08-15 14:08] LABS: Basophils % (A) 0 %; Eosinophils # (A) 0.2 k/uL (0-0.7); Eosinophils % (A) 3 %; HCT 38.1 % (39.0-53.0); Hypochromasia Slight; Lymphocytes # (A) 0.9 k/uL (1.0-4.8); Lymphocytes % (A) 17 %; MCH 30.9 pg (25.0-35.0); MCHC 31.6 g/dL (31.0-37.0); MCV 97.9 fL (80.0-100.0); Mean Platelet Volume 9.1; Monocytes # (A) 0.5 k/uL (0-1.0); Monocytes % (A) 9 %; Neutrophils # (A) 3.7 k/uL (1.3-7.7); Neutrophils % (A) 69 %; Platelet Count 133 k/uL (150-450); RBC 3.89 m/uL (4.30-5.90); RDW 15.2 % (11.5-15.5); WBC 5.3 k/uL (3.8-10.6)
[2017-08-15 14:20] LABS: Calcium 8.2 mg/dL (8.4-10.2); Potassium 4.4 mmol/L (3.5-5.1)
--- NOTE | 2017-08-15 15:14 | P.PN ---
Subjective Progress Note Date: 08/15/17 Principal diagnosis: 77-year-old male a history of chronic kidney disease, diabetes, underlying alcohol liver cirrhosis portal hypertension ascites with multiple paracentesis with recent diagnosis of metastatic hepatocellular carcinoma to bilateral adrenal glands with tumor thrombus in the right hepatic vein, left and right main portal vein extending into the IV. Patient admitted with confusion elevated ammonia level 357, acute kidney injury, hyperkalemia. The patient was found to be a poor candidate for local regional therapy as the patient's disease is too extensive, the only option for systemic therapy would be sorafenib, of the patient and his significant other performed Dr. Dhaliwal that they have decided not to proceed with systemic therapy with sorafenib. Patient feeling much better today, appetite improving. No acute events overnight Objective - Vital Signs Vital signs: Vital Signs Temp 98.8 F 08/15/17 07:00 Pulse 71 08/15/17 07:00 Resp 16 08/15/17 07:00 BP 116/62 08/15/17 07:00 Pulse Ox 97 08/15/17 07:00 Intake & Output 08/14/17 08/15/17 08/15/17 18:59 06:59 18:59 Output Total 350 Balance -350 Output: Urine 350 Uretheral (Dobbins) 200 Other: Voiding Method Indwelling Catheter Indwelling Catheter Indwelling Catheter # Voids 1 # Bowel Movements 2 - Exam Constitutional: No acute distress, conversant, pleasant Eyes: Anicteric sclerae, moist conjunctiva, no lid-lag, PERRLA ENMT: NC/AT,Oropharynx clear, no erythema, exudates Neck:Supple, FROM, no masses, or JVD, No carotid bruits; No thyromegaly Lungs: Clear to auscultation, Clear to percussion, Normal respiratory effort, no accessory muscle use Cardiovascular: Heart regular in rate and rhythm, No murmurs, gallops, +2 bilateral lower extremity pitting edema Abdominal: Soft Nontender, nom distended, no guarding, no rebound or rigidity, Normoactive bowel sounds No hepatomegaly, No splenomegaly, No palpable mass No abdominal wall hernia noted Skin: Normal temperature, tone, texture, turgor, No induration No subcutaneous nodules, No rash, lesions, No ulcers Extremities:No digital cyanosis No clubbing, Pedal pulses intact and symmetrical Radial pulses intact and symmetrical Normal gait and station, No calf tenderness Psychiatric: Alert and oriented to person, place and time, Appropriate affect Intact judgement Neuro: Muscles Strength 5/5 in all 4 extremities, Sensation to light touch grossly present throughout, Cranial nerves II-XII grossly intact. No focal sensory deficits - Labs CBC & Chem 7: 08/15/17 13:40 08/15/17 13:40 Labs: Abnormal Lab Results - Last 24 Hours (Table) 08/14/17 08/14/17 08/15/17 Range/Units 17:14 20:14 07:29 RBC (4.30-5.90) m/uL Hgb (13.0-17.5) gm/dL Hct (39.0-53.0) % Plt Count (150-450) k/uL Lymphocytes # (1.0-4.8) k/uL Carbon Dioxide (22-30) mmol/L BUN (9-20) mg/dL Creatinine (0.66-1.25) mg/dL Glucose (74-99) mg/dL POC Glucose (mg/dL) 124 H 156 H 105 H (75-99) mg/dL Calcium (8.4-10.2) mg/dL 08/15/17 08/15/17 08/15/17 Range/Units 11:57 13:40 13:40 RBC 3.89 L (4.30-5.90) m/uL Hgb 12.0 L (13.0-17.5) gm/dL Hct 38.1 L (39.0-53.0) % Plt Count 133 L (150-450) k/uL Lymphocytes # 0.9 L (1.0-4.8) k/uL Carbon Dioxide 18 L (22-30) mmol/L BUN 69 H (9-20) mg/dL Creatinine 2.72 H (0.66-1.25) mg/dL Glucose 126 H (74-99) mg/dL POC Glucose (mg/dL) 140 H (75-99) mg/dL Calcium 8.2 L (8.4-10.2) mg/dL Microbiology - Last 24 Hours (Table) 08/13/17 06:30 Urine Culture - Final Urine,Catheterized Assessment and Plan (1) Acute renal failure superimposed on stage 3 chronic kidney disease Narrative/Plan: * Creatinine trending down from 3.7 to 2.7, nephrology Dr. Burnette following * Hyperkalemia has resolved, patient started on sodium bicarbonate * We'll need input from nephrology on whether the patient can be restarted on diuretics Current Visit: Yes Status: Acute Code(s): N17.9 - ACUTE KIDNEY FAILURE, UNSPECIFIED; N18.3 - CHRONIC KIDNEY DISEASE, STAGE 3 (MODERATE) SNOMED Code(s) : 738630484 (2) Alcoholic cirrhosis of liver with ascites Narrative/Plan: * Status post large volume paracentesis 8.4 L on 08/11/17 * chronic transaminits at baseline * Continue Lasix * Continue to hold propranolol as patient's blood pressure is controlled without it * Given the patient's poor prognosis with metastatic hepatocellular person the patient might be considered a candidate for placement of an indwelling peritoneal catheter in the future * Current Visit: Yes Status: Acute Code(s): K70.31 - ALCOHOLIC CIRRHOSIS OF LIVER WITH ASCITES SNOMED Code(s): 610486140 (3) Hepatic encephalopathy Narrative/Plan: * CT of the head negative for any acute intracranial pathology * Continue with lactulose and Xifaxan serum ammonia level trending down from 357 -93 * Appreciate GI recommendations * Continue to Hold morphine, flexaril, gabapentin, norco Current Visit: Yes Status: Resolved Code(s): K72.90 - HEPATIC FAILURE, UNSPECIFIED WITHOUT COMA SNOMED Code(s): 18631211 (4) Hepatocellular carcinoma Current Visit: Yes Status: Acute Code(s): C22.0 - LIVER CELL CARCINOMA SNOMED Code(s): 848800411 (5) Urinary tract infection Narrative/Plan: * Urine culture negative * Patient afebrile without leukocytosis, patient not septic lactic acidosis was secondary to alcoholic cirrhosis * Discontinue Rocephin Current Visit: Yes Status: Acute Code(s): N39.0 - URINARY TRACT INFECTION, SITE NOT SPECIFIED SNOMED Code(s): 51903724 Plan: Discussed with the patient's significant other the patient's overall poor prognosis and recommendations by Dr. Dhaliwal to proceed with comfort care and possibly hospice. At this point the patient would like more information, social work consulted to provide more information regarding comfort care. Approaching discharge goals in the next 24-40 We'll discuss further tomorrow
[2017-08-15 17:42] LABS: Glucose,Whole Blood 101 mg/dL (75-99)
[2017-08-15 21:18] LABS: Glucose,Whole Blood 104 mg/dL (75-99)
--- NOTE | 2017-08-15 22:33 | P.PN ---
Subjective Progress Note Date: 08/14/17 Principal diagnosis: Hepatic encephalopathy The patient is more alert and appears oriented to person and place. No abdominal complaints or bleeding. Objective - Vital Signs Vital signs: Vital Signs Temp 97.4 F L 08/14/17 07:00 Pulse 71 08/14/17 07:00 Resp 18 08/14/17 07:00 BP 117/56 08/14/17 07:00 Pulse Ox 96 08/14/17 07:00 Intake & Output 08/13/17 08/14/17 08/14/17 18:59 06:59 18:59 Intake Total 3620 550 Output Total 500 650 200 Balance 3120 -100 -200 Weight 93.5 kg 92.5 kg Intake: Intake, IV Titration 2900 350 Amount Albumin Human 25% 50 ml 200 In Empty Bag 1 bag @ 200 mls/hr IVPB Q15M R[facility]INDRA Rx#: [id number] Dextrose 5% in Water 1, 350 000 ml @ 50 mls/hr IV . Q23H RAVINDRA with Sodium Bicarb (1 Meq/ml) 150 ml Rx#:[id number] Sodium Chloride 0.9% 1, 700 000 ml @ 50 mls/hr IV . Q20H RAVINDRA Rx#:[id number] Sodium Chloride 0.9% 1, 1000 000 ml @ 999 mls/hr IV . Q1H1M ONE Rx#:[id number] Sodium Chloride 0.9% 500 1000 ml @ 999 mls/hr IV .Q31M STA Rx#:[id number] Oral 720 200 Output: Urine 500 550 200 Uretheral (Dobbins) 500 200 Stool 100 Other: Voiding Method Indwelling Catheter Indwelling Catheter Indwelling Catheter # Bowel Movements 2 2 - Exam General: Appears stated age, very pleasant in no acute distress Head and neck: Normocephalic and atraumatic, conjunctivae pink and sclerae muddy , mucous membranes moist and pink. No masses in the neck or tracheal shifts Lungs: Clear to auscultation with no dullness to percussion Heart: Regular, no abnormal sounds, murmurs, gallops or friction rubs Abdomen: Distended but soft, no masses or organomegalies. No tenderness or guarding. Bowel sounds present. Ulcerations on the skin in the right abdomen at sites of prior paracentesis with localized cellulitis Extremities: No clubbing, cyanosis or edema Neurologic: Alert and oriented to person. Cranial nerves grossly intact. No gross sensory or motor abnormalities - Labs CBC & Chem 7: 08/15/17 13:40 08/15/17 13:40 Labs: Abnormal Lab Results - Last 24 Hours (Table) 08/13/17 08/13/17 08/14/17 Range/Units 16:49 21:04 07:09 RBC 3.87 L (4.30-5.90) m/uL Hgb 12.2 L (13.0-17.5) gm/dL Hct 37.5 L (39.0-53.0) % Lymphocytes # 0.8 L (1.0-4.8) k/uL Chloride (98-107) mmol/L Carbon Dioxide (22-30) mmol/L BUN (9-20) mg/dL Creatinine (0.66-1.25) mg/dL Glucose (74-99) mg/dL POC Glucose (mg/dL) 132 H 156 H (75-99) mg/dL Calcium (8.4-10.2) mg/dL 08/14/17 08/14/17 08/14/17 Range/Units 07:09 07:58 12:41 RBC (4.30-5.90) m/uL Hgb (13.0-17.5) gm/dL Hct (39.0-53.0) % Lymphocytes # (1.0-4.8) k/uL Chloride 112 H (98-107) mmol/L Carbon Dioxide 16 L (22-30) mmol/L BUN 70 H (9-20) mg/dL Creatinine 2.92 H (0.66-1.25) mg/dL Glucose 116 H (74-99) mg/dL POC Glucose (mg/dL) 129 H 128 H (75-99) mg/dL Calcium 8.3 L (8.4-10.2) mg/dL Microbiology - Last 24 Hours (Table) 08/13/17 06:30 Urine Culture - Final Urine,Catheterized Assessment and Plan Assessment: Alcoholic liver disease with portal hypertension, intractable ascites and encephalopathy and recent diagnosis of hepatocellular carcinoma. Plan: Agree with current supportive care. Patient apparently is not interested in any specific therapy for his HCC. Will continue lactulose and Xifaxan for his encephalopathy and continue palliative therapeutic paracentesis. I will discuss with you and continue to follow with you.
[2017-08-16] MEDS: MIDODRINE 5 MG TAB PO SCH ×2 (06:14→14:34)
[2017-08-16 07:42] LABS: Glucose,Whole Blood 97 mg/dL (75-99)
[2017-08-16 08:06] VITALS: BP 115/67; PULSE 77; RESP 16; TEMP 97.9
[2017-08-16] MEDS: LACTULOSE 20 GM/30 ML CUP PO SCH ×2 (08:29→14:35)
[2017-08-16] MEDS: SODIUM BICARBONATE TAB 650 MG TAB PO SCH (08:30)
[2017-08-16] MEDS: RIFAXIMIN 550 MG TABLET PO SCH (08:30)
[2017-08-16] MEDS: PANTOPRAZOLE 40 MG TABLET PO SCH (08:30)
[2017-08-16] MEDS: FUROSEMIDE 40 MG TAB PO SCH (08:30)
[2017-08-16] MEDS: TAMSULOSIN 0.4 MG CAP.ER.24H PO SCH (08:30)
[2017-08-16 09:50] LABS: Albumin 2.8 g/dL (3.5-5.0); Calcium 8.3 mg/dL (8.4-10.2); Potassium 4.6 mmol/L (3.5-5.1); Total Protein 6.8 g/dL (6.3-8.2)
--- NOTE | 2017-08-16 10:35 | P.DS ---
Providers Date of admission: 08/12/17 19:47 Expected date of discharge: 08/16/17 Attending physician: Romina Noel DO Consults: 08/12/17 19:47 Consult Physician Urgent Consulting Provider: Rory Dhaliwal Consult Reason/Comments: Cirrhosis, liver cancer Do you want consulting provider notified?: Yes Consult Physician Urgent Consulting Provider: Ivett Burnette Consult Reason/Comments: Renal failure possible Hepatornela syndrome Do you want consulting provider notified?: Yes 08/12/17 21:28 Consult Physician Routine Consulting Provider: Olamide Adams Consult Reason/Comments: hepatic encepahopathy, cirrhosis, ? HRS Do you want consulting provider notified?: Yes Primary care physician: Teressa Webb MD - Discharge Diagnosis(es) (1) Hepatic encephalopathy Current Visit: Yes Status: Resolved (2) Acute renal failure superimposed on stage 3 chronic kidney disease Current Visit: Yes Status: Acute (3) Alcoholic cirrhosis of liver with ascites Current Visit: Yes Status: Acute (4) Hepatocellular carcinoma Current Visit: Yes Status: Acute (5) Urinary tract infection Current Visit: Yes Status: Acute Hospital Course: 77-year-old male a history of stage III chronic kidney disease, diabetes, underlying alcohol liver cirrhosis, portal hypertension ascites with multiple paracentesis with recent diagnosis of 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 The patient was found to be a poor candidate for local regional therapy as the patient's disease is too extensive, the only option for systemic therapy would be sorafenib, of the patient and his significant other performed Dr. Dhaliwal that they have decided not to proceed with systemic therapy with sorafenib. Patient admitted with hepatic encephalopathy after presenting with confusion elevated ammonia level 357, acute kidney injury, hyperkalemia. She was started on rifaximin and lactulose and began having frequent bowel movements with his serum ammonia level normalizing down to 17. All the patient's nephrotoxic medications were held such as his Lasix and spironolactone, he presented with a serum creatinine of 3.7, nephrology was consulted for concern for hepatorenal syndrome. patient was seen by Dr. Burnette who thought it was prerenal secondary to hypotension and hypoperfusion,, the patient was subsequently started on sodium bicarb. Patient's blood pressure medications were also held and the creatinine gradually trended down to 2.83 in the patient's Lasix and spironolactone were restarted prior to discharge. During hospitalization I discussed with the patient and his significant other Alice Osullivan the possibility of making the patient comfort up out of chair with option for hospice, however they were not amenable to this choice of therapy at discharge. He was subsequently discharged in stable condition with recommendation for low -sodium diet and told to keep his follow-up appointment with Dr. Adams, Dr. Burnette and Dr. Webb. This discharge process took approximately 35 minutes Constitutional: No acute distress, conversant, pleasant Eyes: Anicteric sclerae, moist conjunctiva, no lid-lag, PERRLA ENMT: NC/AT,Oropharynx clear, no erythema, exudates Neck:Supple, FROM, no masses, or JVD, No carotid bruits; No thyromegaly Lungs: Clear to auscultation, Clear to percussion, Normal respiratory effort, no accessory muscle use Cardiovascular: Heart regular in rate and rhythm, No murmurs, gallops, or rubs no peripheral edema Abdominal: Soft Nontender, nom distended, no guarding, no rebound or rigidity, Normoactive bowel sounds No hepatomegaly, No splenomegaly, No palpable mass No abdominal wall hernia noted Skin: Normal temperature, tone, texture, turgor, No induration No subcutaneous nodules, No rash, lesions, No ulcers Extremities:No digital cyanosis No clubbing, Pedal pulses intact and symmetrical Radial pulses intact and symmetrical Normal gait and station, No calf tenderness Psychiatric: Alert and oriented to person, place and time, Appropriate affect Intact judgement Neuro: Muscles Strength 5/5 in all 4 extremities, Sensation to light touch grossly present throughout, Cranial nerves II-XII grossly intact. No focal sensory deficits Pertinent Studies: CT of the head without contrast - showing cerebral atrophy and no acute intracranial abnormality Plan - Discharge Summary Discharge Rx Participant: Yes New Discharge Prescriptions: New Sodium Bicarbonate Tab 650 mg PO BID #60 tab traMADol HCl [Ultram] 50 mg PO QID PRN #90 tab PRN Reason: Breakthrough Pain Continue Omeprazole 20 mg PO HS@2100 Cholecalciferol (Vitamin D3) [Vitamin D3] 2,000 unit PO DAILY@0900 Tamsulosin [Flomax] 0.4 mg PO BID@0900,2100 Spironolactone [Aldactone] 12.5 mg PO DAILY@0900 Midodrine [ProAmatine] 10 mg PO TID@0600,1400,2200 Lactulose 20 gm PO QID@,,, Cyclobenzaprine [Flexeril] 5 mg PO Q8H PRN PRN Reason: muscle spasms Melatonin 5 mg PO HS PRN PRN Reason: sleep Changed Furosemide [Lasix] 40 mg PO DAILY #0 Magnesium Oxide [Mag-Ox] 400 mg PO DAILY #0 Rifaximin [Xifaxan] 550 mg PO BID #0 Discontinued Gabapentin [Neurontin] 100 mg PO TID@0600,1400,2200 Felodipine [Felodipine ER] 10 mg PO DAILY@0900 MORPHINE ORAL SAVITA 2mg/mL [Morphine Oral Soln 2 MG/ML] 6 mg PO Q6H PRN #100 ml PRN Reason: Pain/Discomfort Propranolol HCl [Inderal Xl] 120 mg PO DAILY@0900 HYDROcodone/APAP 5-325MG [[place] 5-325] 1 tab PO Q6H PRN PRN Reason: Pain Discharge Medication List Cholecalciferol (Vitamin D3) [Vitamin D3] 2,000 unit PO DAILY@0900 06/14/17 [ History] Omeprazole 20 mg PO HS@209906/14/17 [History] Tamsulosin [Flomax] 0.4 mg PO BID@0900,209906/14/17 [History] Midodrine [ProAmatine] 10 mg PO TID@0600,1400,2200 08/02/17 [History] Spironolactone [Aldactone] 12.5 mg PO DAILY@0900 08/02/17 [History] Cyclobenzaprine [Flexeril] 5 mg PO Q8H PRN 08/12/17 [History] Lactulose 20 gm PO QID@,,,08/12/17 [History] Melatonin 5 mg PO HS PRN 08/12/17 [History] Furosemide [Lasix] 40 mg PO DAILY #0 08/16/17 [Rx] Magnesium Oxide [Mag-Ox] 400 mg PO DAILY #0 08/16/17 [Rx] Rifaximin [Xifaxan] 550 mg PO BID #0 08/16/17 [Rx] Sodium Bicarbonate Tab 650 mg PO BID #60 tab 08/16/17 [Rx] traMADol HCl [Ultram] 50 mg PO QID PRN #90 tab 08/16/17 [Rx] Follow up Appointment(s)/Referral(s): Teressa Webb MD [Primary Care Provider] - 1-2 days Olamide Adams MD [STAFF PHYSICIAN] - 08/23/17 2:45 pm Ivett Burnette MD [STAFF PHYSICIAN] - 1 Week Activity/Diet/Wound Care/Special Instructions: Low salt diet, BMP in one week, follow up with Dr Burnette in one week. Discharge Disposition: HOME SELF-CARE
[2017-08-16 11:38] LABS: Glucose,Whole Blood 134 mg/dL (75-99)
--- NOTE | 2017-08-17 00:07 | PN ---
PROGRESS NOTE Patient is seen for followup for acute kidney injury. His renal function has improved slightly with creatinine down to 2.7 yesterday, today it is back up to 2.83. The patient is eating well. He is off of IV fluids. He was started on oral Lasix yesterday. He seems to have had good urine output. EXAMINATION: Blood pressure is 115/67, heart rate 77 per minute. He is afebrile. On exam, the patient continues to have significant ascites and lower extremity edema. His lungs are not heard. LABS SHOW: Sodium 138, potassium 4.6, chloride 104, BUN 67, serum creatinine 2.83. ASSESSMENT: 1. Acute kidney injury secondary to hypotension/hypoperfusion, improved since admission. Creatinine is staying up at about 2.7-2.8 mg/dL. Patient has been restarted on oral Lasix. We can also resume the . He will need close monitoring as outpatient. We also need to avoid hypotension. 2. 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 Previous creatinine has been as low as 1.5 mg/dL recently in May with another creatinine of 1.04 in May of 2017. PLAN: Patient can be discharged. Continue with midodrine. May resume oral Lasix and Aldactone and monitor labs closely as outpatient. MMODL / IJN: [id number] /
== END 2017-08-16 18:00 | disposition home or self-care (01) | DRG 441 ==
LOC: EC 16:07 → 6SEL 19:47 → 5MS5E 08-14 01:33
PROVIDERS: ADMIT Internal Medicine; ATTEND Internal Medicine
DX: K72.00 Acute and subacute hepatic failure without coma (principal); K76.7 Hepatorenal syndrome; I82.220 Acute embolism and thrombosis of inferior vena cava; I81 Portal vein thrombosis; I82.0 Budd-Chiari syndrome; I95.9 Hypotension, unspecified; N17.9 Acute kidney failure, unspecified; E87.2 Acidosis; C79.71 Secondary malignant neoplasm of right adrenal gland; K76.6 Portal hypertension; C22.0 Liver cell carcinoma; N39.0 Urinary tract infection, site not specified; C79.72 Secondary malignant neoplasm of left adrenal gland; N18.3 Chronic kidney disease, stage 3 (moderate); E11.22 Type 2 diabetes mellitus with diabetic chronic kidney disease; K70.31 Alcoholic cirrhosis of liver with ascites; E87.5 Hyperkalemia; Z51.5 Encounter for palliative care; E78.5 Hyperlipidemia, unspecified; K64.9 Unspecified hemorrhoids; N42.9 Disorder of prostate, unspecified; G89.29 Other chronic pain; Z91.81 History of falling; Z79.2 Long term (current) use of antibiotics; Z79.899 Other long term (current) drug therapy; Z85.46 Personal history of malignant neoplasm of prostate; Z87.891 Personal history of nicotine dependence
CPT/HCPCS: 36415; 70450; 80048; 80053; 81001; 82105; 82140; 82550; 82553; 83605; 83735; 84484; 85025; 85027; 85610; 85730; 87086; 96361; 96374; 96375; 99291

== ENCOUNTER → 2017-08-17 | Outpatient (CLI) | payer MEDICARE, OTHER ==
[2017-08-17 12:24] LABS: Calcium 8.7 mg/dL (8.4-10.2); Magnesium 2.7 mg/dL (1.6-2.3); Potassium 4.7 mmol/L (3.5-5.1)
== END | disposition home or self-care (01) ==
LOC: LABWHC1 11:39
PROVIDERS: ATTEND Family Medicine
DX: N17.9 Acute kidney failure, unspecified (principal); N18.9 Chronic kidney disease, unspecified; E83.42 Hypomagnesemia
CPT/HCPCS: 36415; 80048; 83735